=== PATIENT | male | born 1950 | race Hispanic/Latino ===

== ENCOUNTER 2017-10-04 14:13 | Emergency (ER) | payer OTHER ==
[2017-10-04 15:09] LABS: BASOPHILS % (AUTO) 0.3 % (0.0-5.0); HEMATOCRIT 27.7 % (42-54); LYMPHOCYTES % (AUTO) 15.4 % (21.0-51.0); MEAN CORPUSCULAR HEMOGLOBIN 28.2 pg (27.0-33.0); MEAN CORPUSCULAR HGB CONC 33.6 g/dL (32.0-36.0); MEAN CORPUSCULAR VOLUME 83.8 fL (79-99); MONOCYTES % (AUTO) 7.8 % (3.0-13.0); NEUTROPHILS % (AUTO) 75.5 % (40.0-77.0); PLATELET COUNT (AUTO) 86 K/uL (130-400); RED CELL DISTRIBUTION WIDTH 14.6 % (11.0-15.5); WHITE BLOOD COUNT (AUTO) 5.3 K/uL (4.8-10.8)
[2017-10-04 15:23] LABS: INR 1.17 (0.85-1.15); POTASSIUM 3.3 mmol/L (3.5-5.1); PROTHROMBIN TIME 12.2 SEC (9.6-11.6)
[2017-10-04 15:28] LABS: ALBUMIN 2.8 g/dL (3.5-5.0); BILIRUBIN,TOTAL 1.2 mg/dL (0.2-1.0); TOTAL PROTEIN, SERUM 6.2 g/dL (6.0-8.3)
== END 2017-10-04 18:06 | disposition home or self-care (01) ==
LOC: EDH 14:13
DX: K92.0 Hematemesis (principal); R10.13 Epigastric pain
CPT/HCPCS: 36415; 80053; 82270; 85025; 85610; 85730; 86850; 86900; 86901; 93005; 96374

== ENCOUNTER → 2018-11-01 | Outpatient (CLI) | payer OTHER ==
[~2018-11-01] MED LIST: FE F1CAP33 PO; IOHEXOL 350 MG/ML 100ML INFUS..BTL IV ONE; NADO20TA12 PO; PANT40TA25 PO
== END | disposition home or self-care (01) ==
LOC: RAH 07:48
PROVIDERS: ATTEND Family Medicine
DX: D73.2 Chronic congestive splenomegaly (principal); R16.2 Hepatomegaly with splenomegaly, not elsewhere classified; K82.8 Other specified diseases of gallbladder; K44.9 Diaphragmatic hernia without obstruction or gangrene; R18.8 Other ascites; I70.0 Atherosclerosis of aorta; M47.819 Spondylosis without myelopathy or radiculopathy, site unspecified
CPT/HCPCS: 74178; Q9967

== ENCOUNTER 2018-11-05 07:24 | Day surgery (SDC) | payer OTHER ==
[~2018-11-05 07:24] MED LIST changes: -IOHEXOL 350 MG/ML 100ML INFUS..BTL IV ONE
[2018-11-05 08:28] LABS: BASOPHILS % (AUTO) 0.8 % (0.0-5.0); EOSINOPHILS % (AUTO) 2.4 % (0.0-8.0); HEMATOCRIT 34.6 % (42-54); LYMPHOCYTES % (AUTO) 23.8 % (21.0-51.0); MEAN CORPUSCULAR HEMOGLOBIN 30.1 pg (27.0-33.0); MEAN CORPUSCULAR HGB CONC 32.6 g/dL (32.0-36.0); MEAN CORPUSCULAR VOLUME 92.3 fL (79-99); MONOCYTES % (AUTO) 15.3 % (3.0-13.0); NEUTROPHILS % (AUTO) 57.7 % (40.0-77.0); PLATELET COUNT (AUTO) 61 K/uL (130-400); RED BLOOD CELL COUNT(AUTO) 3.75 MIL/uL (4.50-6.20); RED CELL DISTRIBUTION WIDTH 16.4 % (11.0-15.5); WHITE BLOOD COUNT (AUTO) 2.4 K/uL (4.8-10.8)
[2018-11-05] MEDS ORDERED: SODIUM CHLORIDE 0.9% 1000ML 1,000 ML IV ONE (08:39)
[2018-11-05 08:40] LABS: INR 1.15 (0.85-1.15); PARTIAL THROMBOPLASTIN TIME 29.9 SEC (26.3-35.5)
[2018-11-05 09:19] LABS: MAN.DIFF COMMENT-IMPRESSION MANUAL DIFFERENTIAL
[2018-11-05 09:24] LABS: PLATELET MORPHOLOGY COMMENT DECREASED
[2018-11-05 09:29] LABS: EOSINOPHILS % (MANUAL) 2 % (1-6); LYMPHOCYTES % (MANUAL) 33 % (22-44); MONOCYTES % (MANUAL) 7 % (2-9); SEGMENTED NEUTROPHILS % 58 % (40-70)
--- NOTE | 2018-11-05 11:30 | NUR ---
PROCEDURE PATIENT SCHEDULED FOR CT GD LIVE MASS BIOPSY. IMAGES REVIEWED BY DR Juvencio GALLARDO AND RECOMMENDED U/S GUIDANCE FOR SAFER APPROACH. U/S IMAGES TAKEN AND REVIEWED BY DR Juvencio GALLARDO. NO SAFE WINDOW TO PERFORM LIVER MASS BIOPSY WITHOUT PUNCTURING THE LUNG. PROCEDURE CANCELLED. PROCEDURE OUTCOME EXPLAINED TO PATIENT AND . VERBALIZED UNDERSTANDING AND TRANSPORTED TO DAY PATIENT, REPORT GIVEN TO Juvencio CALLOWAY RN
--- NOTE | 2018-11-05 11:43 | NUR ---
PROCEDURE NOT ABLE TO BE COMPLETED SAFELY, PROCEDURE ABORTED.PT WILL BE DISCHARGED TO FOLLOW UP WITH DR. PETER.
== END 2018-11-05 11:52 | disposition home or self-care (01) ==
LOC: DAH 07:24 → EDSTATUS 08:00 → DAH 11:52
PROVIDERS: ATTEND Family Medicine
DX: R16.0 Hepatomegaly, not elsewhere classified (principal); K74.60 Unspecified cirrhosis of liver; E66.3 Overweight; Z98.890 Other specified postprocedural states; Z79.899 Other long term (current) drug therapy; Z87.891 Personal history of nicotine dependence; Z68.25 Body mass index [BMI] 25.0-25.9, adult
CPT/HCPCS: 36415; 76705; 85025; 85610; 85730; A4606; J7030

== ENCOUNTER 2019-02-21 07:02 | Inpatient (IN) | payer OTHER ==
[~2019-02-21] VITALS: Ht 162.6 cm; Wt 75.3 kg
[2019-02-21] MEDS ORDERED: SODIUM CHLORIDE 0.9% 100 ML IV ONE ×3 (07:52→16:53)
[2019-02-21 08:11] LABS: INR 1.39 (0.85-1.15); PARTIAL THROMBOPLASTIN TIME 30.1 SEC (26.3-35.5); PROTHROMBIN TIME 14.4 SEC (9.6-11.6)
[2019-02-21 08:22] LABS: BILIRUBIN,TOTAL 2.6 mg/dL (0.2-1.0); CREATININE 0.9 mg/dL (0.5-1.5); POTASSIUM 3.5 mmol/L (3.5-5.1)
[2019-02-21 08:23] LABS: ALBUMIN 2.2 g/dL (3.5-5.0); TOTAL PROTEIN, SERUM 5.4 g/dL (6.0-8.3)
[2019-02-21 08:30] LABS: BASOPHILS % (AUTO) 1.4 % (0.0-5.0); EOSINOPHILS % (AUTO) 1.8 % (0.0-8.0); HEMATOCRIT 29.2 % (42-54); LYMPHOCYTES % (AUTO) 3.3 % (21.0-51.0); MEAN CORPUSCULAR HEMOGLOBIN 31.3 pg (27.0-33.0); MEAN CORPUSCULAR HGB CONC 34.8 g/dL (32.0-36.0); MEAN CORPUSCULAR VOLUME 90.1 fL (79-99); MONOCYTES % (AUTO) 9.4 % (3.0-13.0); NEUTROPHILS % (AUTO) 84.1 % (40.0-77.0); PLATELET COUNT (AUTO) 142 K/uL (130-400); RED BLOOD CELL COUNT(AUTO) 3.24 MIL/uL (4.50-6.20); RED CELL DISTRIBUTION WIDTH 16.5 % (11.0-15.5); WHITE BLOOD COUNT (AUTO) 11.1 K/uL (4.8-10.8)
[2019-02-21] MEDS ORDERED: SODIUM CHLORIDE 0.9% 1000ML 1,000 ML IV ONE ×2 (08:39→09:43)
[2019-02-21] MEDS ORDERED: ONDANSETRON HCL 4 MG/2 ML VIAL ONE (09:01)
[2019-02-21] MEDS ORDERED: LEVOFLOXACIN 500 MG/D5W 100 ML 100 ML ONE (09:49)
[2019-02-21 09:58] LABS: CREATININE 0.7 mg/dL (0.5-1.5); POTASSIUM 3.3 mmol/L (3.5-5.1)
[2019-02-21] MEDS ORDERED: CEFTRIAXONE SODIUM 2 GM VIAL ONE (11:43)
[2019-02-21] MEDS ORDERED: PHYTONADIONE 10 MG/1 ML AMP ONE (11:44)
[2019-02-21 11:54] LABS: APPEARANCE,URINE Cloudy (CLEAR); BILIRUBIN,URINE Negative (NEGATIVE); COLOR,URINE Dark Yellow (YELLOW); GLUCOSE, URINE (UA) Negative (NEGATIVE); KETONES,URINE Negative (NEGATIVE); LEUKOCYTE ESTERASE ,URINE Trace (NEGATIVE); NITRATE,URINE Negative (NEGATIVE); OCCULT BLOOD,URINE Negative (NEGATIVE); PROTEIN,URINE POS 1+ mg/dL (NEGATIVE)
[2019-02-21] MEDS ORDERED: OCTREOTIDE ACETATE 500 MCG in SODIUM CHLORIDE 0.9% 97.5 ML IV PRN (12:00)
[2019-02-21] MEDS: AZITHROMYCIN 500MG+NS 250ML 250 ML IV SCH (12:00)
[2019-02-21] MEDS: CEFTRIAXONE SODIUM 2 GM VIAL IVP SCH (12:00)
[2019-02-21 12:35] LABS: BACTERIA,URINE Rare /HPF (None Seen); RBC,URINE 0-1 /HPF (0-1); SQUAMOUS EPITHELIAL CELL,UR Rare /HPF (0-2); WBC,URINE 0-1 /HPF (0-1)
[2019-02-21] MEDS ORDERED: MIDODRINE HCL 5 MG TABLET ONE (13:57)
[2019-02-21] MEDS ORDERED: AZITHROMYCIN 500MG+NS 250ML 250 ML IV ONE (17:02)
[2019-02-21] MEDS ORDERED: ONDANSETRON HCL 4 MG/2 ML VIAL IVP PRN (19:15)
[2019-02-21 20:28] VITALS: BP 76/50
[2019-02-21] MEDS: MIDODRINE HCL 5 MG TABLET PO SCH ×2 (21:00→21:58)
[2019-02-21] MEDS ORDERED: PANTOPRAZOLE 40 MG/VIAL IVP SCH (21:00)
[2019-02-21 21:04] VITALS: BP 86/52
[2019-02-21] MEDS: OCTREOTIDE ACETATE 500 MCG in SODIUM CHLORIDE 0.9% 97.5 ML IV SCH (22:01)
[2019-02-21] MEDS: PANTOPRAZOLE SODIUM 80 MG in SODIUM CHLORIDE 0.9% 100 ML IV SCH (22:01)
[2019-02-21 22:02] VITALS: BP 115/56
[2019-02-21] MEDS ORDERED: CIPR500S5 PO (22:15)
[2019-02-21] MEDS ORDERED: CYAN1TAB44 PO (22:15)
[2019-02-21] MEDS ORDERED: OMEP1PAC5 PO (22:15)
[2019-02-21] MEDS ORDERED: TRAM50TA4 PO (22:15)
[2019-02-21] MEDS ORDERED: FE F1CAP33 PO (22:15)
[2019-02-21] MEDS ORDERED: CARV6.25 PO (22:15)
--- NOTE | 2019-02-21 22:52 | NUR ---
PATIENT ADMITTED AT 2030 Patient was admitted from ED at 2030 with BP 77/49 but asymtomatic, Room air, and no pain at that time, AxOx4 and able to give medical history. Hospitalist INSTRUCTOR BUSINESS EDUCATION on-call was contacted for low blood pressure, and stated that if low BP was persistent, then transfer to ICU and start Levofed. Since then, pressures rising and patient continues to be asymtomatic at this time. Will continue to monitor. Patient was hypokalemic and no coverage in ED. Protocol started on floor.
[2019-02-21] MEDS ORDERED: POTASSIUM CHLORIDE 20 MEQ ERTAB PO PRN (23:00)
[2019-02-21] MEDS ORDERED: POTASSIUM CHLORIDE 20MEQ/100ML 100 ML IV PRN (23:00)
[2019-02-21] MEDS ORDERED: LIDOCAINE HCL-MPF 1% 2ML VIAL IV PRN (23:00)
[2019-02-21] MEDS: POTASSIUM CHLORIDE 10% ELIXIR 20 MEQ/15 ML UDCUP PO PRN (23:22)
[2019-02-21 23:25] VITALS: BP 98/55
[2019-02-22] VITALS (24 sets, daily range): BP systolic 76–99; BP diastolic 38–92
[2019-02-22] MEDS: POTASSIUM CHLORIDE 10% ELIXIR 20 MEQ/15 ML UDCUP PO PRN (01:12)
[2019-02-22 04:57] LABS: BASOPHILS % (AUTO) 0.2 % (0.0-5.0); EOSINOPHILS % (AUTO) 2.2 % (0.0-8.0); LYMPHOCYTES % (AUTO) 5.9 % (21.0-51.0); MEAN CORPUSCULAR HEMOGLOBIN 32.1 pg (27.0-33.0); MEAN CORPUSCULAR HGB CONC 35.5 g/dL (32.0-36.0); MEAN CORPUSCULAR VOLUME 90.4 fL (79-99); MONOCYTES % (AUTO) 18.7 % (3.0-13.0); PLATELET COUNT (AUTO) 78 K/uL (130-400); RED BLOOD CELL COUNT(AUTO) 2.15 MIL/uL (4.50-6.20); RED CELL DISTRIBUTION WIDTH 16.6 % (11.0-15.5); WHITE BLOOD COUNT (AUTO) 3.7 K/uL (4.8-10.8)
[2019-02-22 05:01] LABS: CREATININE 0.8 mg/dL (0.5-1.5); POTASSIUM 4.7 mmol/L (3.5-5.1)
[2019-02-22 05:04] LABS: HEMATOCRIT 19.4 % (42-54)
--- NOTE | 2019-02-22 05:15 | NUR ---
Blood transfusion Hemoglobin dropped to 6.9 from 10.1. Wilder TAP AND DIE MAKER TECHNICIAN notified and 1 unit PRBC given and GI consult placed.
[2019-02-22] MEDS: MIDODRINE HCL 5 MG TABLET PO SCH ×3 (07:50→20:18)
--- NOTE | 2019-02-22 07:58 | NUR ---
Eder MORALEZ MULTIPLEX OPERATOR, IN ROOM WITH PT. FOR CONSULT.
--- NOTE | 2019-02-22 08:00 | NUR ---
PRBC TRANSFUSION COMPLETED. PT. DENIES ANY C/O AT THIS TIME. CALL LIGHT WITHIN REACH.
[2019-02-22] MEDS: OCTREOTIDE ACETATE 500 MCG in SODIUM CHLORIDE 0.9% 97.5 ML IV SCH ×2 (08:08→22:17)
--- NOTE | 2019-02-22 08:35 | NUR ---
SECOND UNIT PRBC STARTED AFTER S/S OF POTENTIAL ADVERSE EFFECTS EXPLAINED, PT. VERBALIZED UNDERSTANDING. CALL LIGHT WITHIN REACH.
--- NOTE | 2019-02-22 08:45 | NUR ---
PRBC TRANSFUSION IN PROGRESS. PT. DENIES ANY C/O AT THIS TIME. CALL LIGHT WITHIN REACH.
[2019-02-22] MEDS ORDERED: CARV6.25 PO (08:49)
[2019-02-22] MEDS ORDERED: CIPR-278 PO (08:49)
[2019-02-22] MEDS ORDERED: METOCLOPRAMIDE 10 MG/2 ML VIAL IVP SCH (09:57)
--- NOTE | 2019-02-22 11:00 | NUR ---
2ND UNIT PRBC TRANSFUSION COMPLETED. PT. DENIES ANY C/O AT THIS TIME. CALL LIGHT WITHIN REACH.
--- NOTE | 2019-02-22 11:05 | NUR ---
TO GI LAB VIA BED ACCOMPANIED BY Anjelica SANDHU, AND Lavon LAURENT RN.
[2019-02-22] MEDS ORDERED: PROPOFOL 10 MG/ML 20ML VIAL IV ONE ×2 (11:14→11:18)
[2019-02-22] MEDS ORDERED: PHENYLEPHRINE HCL 10 MG/ML 1ML VIAL IV ONE (11:18)
[2019-02-22] MEDS ORDERED: SODIUM CHLORIDE 0.9% 1000ML 1,000 ML IV ONE (11:55)
--- NOTE | 2019-02-22 12:15 | NUR ---
RETURNED TO ROOM VIA BED ACCOMPANIED BY Sherry RENAE RN. PT. DROWSY BUT AROUSABLE. DENIES ANY C/O SOB, DENIES ANY CURRENT PAIN. INFORMED OF CONTINUED NPO STATUS, VERBALIZED UNDERSTANDING. BED LOW, SIDE RAILS UP X3. CALL LIGHT WITHIN REACH. SPOUSE AT BEDSIDE.
[2019-02-22] MEDS: CEFTRIAXONE SODIUM 2 GM VIAL IVP SCH (13:15)
[2019-02-22] MEDS: AZITHROMYCIN 500MG+NS 250ML 250 ML IV SCH (13:15)
--- NOTE | 2019-02-22 13:18 | NUR ---
TO CT SCAN VIA BED.
[2019-02-22 14:17] LABS: HEMATOCRIT 26.5 % (42-54)
--- NOTE | 2019-02-22 14:50 | NUR ---
RD Notification Pt admitted for Abdominal Pain, GI hemorrhage, pending EGD results. Rec to continue POC, pending Gastroenterology recommendations. Pt Hx of Liver cirrhosis, Esophageal varices, s/p banding. Also pending Repeat CXR to r/o TB as per EMR. Pt LBM 02/21. Pt monitored labs: H/H 6.9/19.4, BG 118, Ca 7.3, Alb 2.2. RD to continue to monitor. Please notify RD as additional nutrition concerns arise. Thank you. Addendum: 02/22/19 at [address] Amended: Links added.
--- NOTE | 2019-02-22 14:51 | NUR ---
1344 had pt sign and faxed IM Letter to [phone]
--- NOTE | 2019-02-22 15:20 | NUR ---
DC Plan Met with patient to discuss dcp. Patient did not verbalize any dc needs. States feels safe returning home upon discharge. Addendum: 02/22/19 at 1732 by HECTOR ZHOU Amended: Links added.
--- NOTE | 2019-02-22 17:38 | NUR ---
DR. Edgardo GRAYSON IN ROOM SPEAKING WITH PT.
[2019-02-22] MEDS: PANTOPRAZOLE SODIUM 80 MG in SODIUM CHLORIDE 0.9% 100 ML IV SCH (17:47)
[2019-02-22 21:14] LABS: HEMATOCRIT 27.2 % (42-54)
[2019-02-23 03:50] VITALS: BP 100/60
[2019-02-23 04:00] LABS: CREATININE 0.8 mg/dL (0.5-1.5); POTASSIUM 4.2 mmol/L (3.5-5.1)
[2019-02-23] MEDS: PANTOPRAZOLE SODIUM 80 MG in SODIUM CHLORIDE 0.9% 100 ML IV SCH (04:28)
[2019-02-23 07:42] VITALS: BP 103/61
[2019-02-23] MEDS: MIDODRINE HCL 5 MG TABLET PO SCH ×2 (08:55→13:27)
[2019-02-23] MEDS ORDERED: CEFD300C3 PO (10:41)
[2019-02-23] MEDS ORDERED: PANT40TA PO (10:42)
[2019-02-23 11:37] VITALS: BP 100/64
[2019-02-23] MEDS: AZITHROMYCIN 500MG+NS 250ML 250 ML IV SCH (12:27)
[2019-02-23] MEDS: CEFTRIAXONE SODIUM 2 GM VIAL IVP SCH (12:27)
[2019-02-23 14:05] LABS: HEMATOCRIT 27.3 % (42-54)
[2019-02-23 15:52] VITALS: BP 105/60
== END 2019-02-23 19:20 | disposition home or self-care (01) | DRG 432 ==
LOC: EDH 07:02 → OBSVTOIN 08:57 → EDHIP 08:57 → 2AH 20:00
PROVIDERS: ADMIT Internal Medicine; ATTEND Internal Medicine
PROC: 06L38CZ Occlusion of Esophageal Vein with Extraluminal Device, Via Natural or Artificial Opening Endoscopic (ICD-10-PCS; principal; 2019-02-22)
PROC: 30233N1 Transfusion of Nonautologous Red Blood Cells into Peripheral Vein, Percutaneous Approach (ICD-10-PCS; 2019-02-22)
DX: K74.60 Unspecified cirrhosis of liver (principal); I85.01 Esophageal varices with bleeding; J18.9 Pneumonia, unspecified organism; E43 Unspecified severe protein-calorie malnutrition; D62 Acute posthemorrhagic anemia; D68.4 Acquired coagulation factor deficiency; J90 Pleural effusion, not elsewhere classified; K76.6 Portal hypertension; D69.6 Thrombocytopenia, unspecified; J45.909 Unspecified asthma, uncomplicated; L53.9 Erythematous condition, unspecified; R16.1 Splenomegaly, not elsewhere classified; I95.9 Hypotension, unspecified; K31.89 Other diseases of stomach and duodenum; Z68.28 Body mass index [BMI] 28.0-28.9, adult; Z92.3 Personal history of irradiation; Z82.5 Family history of asthma and other chronic lower respiratory diseases; Z83.3 Family history of diabetes mellitus
CPT/HCPCS: 36415; 36430; 43244; 71045; 71250; 80048; 80053; 81001; 82105; 82270; 82550; 83605; 84145; 84484; 85014; 85018; 85025; 85610; 85730; 86850; 86900; 86901; 86922; 87040; 87804; 93005; 99291; C9113; G0378; J0456; J0696; J1956; J2354; J2370; J2405; J2704; J2765; J3430; J7030; P9016

== ENCOUNTER 2019-03-31 05:58 | Day surgery (SDC) | payer OTHER ==
[~2019-03-31] VITALS: Ht 177.8 cm; Wt 70.3 kg
[~2019-03-31 05:58] MED LIST changes: +CARV6.25 PO; +CYAN1TAB44 PO; +LACT10SO9 PO; -NADO20TA12 PO; +PANT40TA PO; -PANT40TA25 PO; +SPIR25TA6 PO
[2019-03-31] MEDS ORDERED: SODIUM CHLORIDE 0.9% 1000ML 1,000 ML IV ONE (06:27)
[2019-03-31 06:31] VITALS: BP 107/69
[2019-03-31] MEDS ORDERED: LIDOCAINE HCL 1% 20 ML VIAL ONE (07:28)
[2019-03-31] MEDS ORDERED: PROPOFOL 10 MG/ML 20ML VIAL IV ONE (07:28)
[2019-03-31] MEDS ORDERED: EPHEDRINE SULFATE 50 MG/ML AMPULE ONE (07:29)
[2019-03-31 07:40] VITALS: BP 99/59
[2019-03-31 07:45] VITALS: BP 96/59
[2019-03-31 07:50] VITALS: BP 96/55
[2019-03-31 07:55] VITALS: BP 91/58
[2019-03-31 08:10] VITALS: BP 100/58
== END 2019-03-31 08:13 | disposition home or self-care (01) ==
LOC: DAH 05:58 → ENDO 05:58
PROVIDERS: ATTEND Internal Medicine
DX: I85.11 Secondary esophageal varices with bleeding (principal); K31.89 Other diseases of stomach and duodenum; C22.9 Malignant neoplasm of liver, not specified as primary or secondary; B96.81 Helicobacter pylori [H. pylori] as the cause of diseases classified elsewhere; K57.30 Diverticulosis of large intestine without perforation or abscess without bleeding; I25.10 Atherosclerotic heart disease of native coronary artery without angina pectoris; K21.9 Gastro-esophageal reflux disease without esophagitis; K70.30 Alcoholic cirrhosis of liver without ascites; Z86.010 Personal history of colon polyps; Z79.899 Other long term (current) drug therapy
CPT/HCPCS: 43244; A4215; A4221; A4222; A4223; A4606; A4620; A4663; J2704; J3490; J7030

== ENCOUNTER 2019-05-20 07:40 | Day surgery (SDC) | payer OTHER ==
[~2019-05-20] VITALS: Ht 177.8 cm; Wt 69.9 kg
[~2019-05-20 07:40] MED LIST changes: +SODIUM CHLORIDE 0.9% 1000ML 1,000 ML IV ONE
[2019-05-20 09:24] VITALS: BP 97/64
[2019-05-20 10:28] VITALS: BP 77/50
[2019-05-20 10:33] VITALS: BP 88/55
[2019-05-20 10:38] VITALS: BP 89/56
[2019-05-20 10:43] VITALS: BP 96/51
--- NOTE | 2019-05-20 11:03 | NUR ---
PT LEFT VIA WHEELCHAIR IN PVT CAR WITH FAMILY MEMBER. D/C INSTRUCTIONS GIVEN TO FAMILY MEMBER DENZEL, ALONG WITH F/U APPT. V/S STABLE NO COMPLICATIONS UPON D/C.
== END 2019-05-20 11:03 | disposition home or self-care (01) ==
LOC: ENDO 07:40 → DAH 07:40 → ENDO 11:03
PROVIDERS: ATTEND Internal Medicine
DX: I85.10 Secondary esophageal varices without bleeding (principal); K70.31 Alcoholic cirrhosis of liver with ascites; K31.89 Other diseases of stomach and duodenum; C22.9 Malignant neoplasm of liver, not specified as primary or secondary; Z79.899 Other long term (current) drug therapy; Z86.010 Personal history of colon polyps; Z83.3 Family history of diabetes mellitus; Z82.5 Family history of asthma and other chronic lower respiratory diseases
CPT/HCPCS: 43235; A4215; A4221; A4222; A4223; A4606; A4620; A4663; J7030

== ENCOUNTER → 2019-06-08 | Outpatient (CLI) | payer OTHER ==
[~2019-06-08] MED LIST changes: +GADODIAMIDE 10 MMOL/20 ML VIAL IV ONE; -SODIUM CHLORIDE 0.9% 1000ML 1,000 ML IV ONE
== END | disposition home or self-care (01) ==
LOC: RAH 10:43
PROVIDERS: ATTEND Family Medicine
DX: C22.9 Malignant neoplasm of liver, not specified as primary or secondary (principal); K74.60 Unspecified cirrhosis of liver; R16.0 Hepatomegaly, not elsewhere classified; R16.1 Splenomegaly, not elsewhere classified
CPT/HCPCS: 74183; A9579

== ENCOUNTER → 2019-06-24 | Outpatient (CLI) | payer OTHER ==
[~2019-06-24] VITALS: Ht 177.8 cm; Wt 73.9 kg
[~2019-06-24] MED LIST changes: +ALBUMIN (HUMAN) 25% 200 ML IV SCH; -GADODIAMIDE 10 MMOL/20 ML VIAL IV ONE
--- NOTE | 2019-06-24 10:40 | NUR ---
U/S GD PARACENTESIS PROCEDURE PERFORMED BY DR. SOW. PUNCTURE SITE LEFT LOWER QUADRANT OF ABDOMEN AND PATIENT TOLERATED PROCEDURE WELL. TOTAL REMOVED 5.0 LITERS OF CLEAR YELLOW FLUID. END OF PROCEDURE AT 1120. CATHETER REMOVED AND DRESSING APPLIED. NO BLEEDING NOTED. ALBUMIN 25% 50 GRAMS GIVEN [place]URING PROCEDURE [place] [facility] [place] RIGHT FOREARM PIV DC'D, BANDAID APPLIED, DRESSING DRY AND INTACT. DISCHARGE INSTRUCTIONS GIVEN TO PATIENT. PATIENT VERBALIZED UNDERSTANDING. PT DISCHARGED VIA W/C, STABLE, AAO X3 WITH NO C/O PAIN. SPECIMEN SENT TO LAB.
[2019-06-24 16:13] LABS: APPEARANCE BODY FLUID SLIGHTLY CLOUDY (CLEAR); BODY FLUID WBC 115 /cu. mm.; COLOR,BODY FLUID DARK YELLOW (LT YELLOW); SPECIMENTYPE,BODY FLUID ASCITES; TOTAL VOLUME,BODY FLUID 5000 mL
[2019-06-24 16:14] LABS: BODY FLUID RBC 1805 /cu. mm.
[2019-06-24 17:58] LABS: BF LYMPHOCYTE 86 %; BF MONOCYTE 7 %
== END ==
LOC: RAH 08:58
PROVIDERS: ATTEND Family Medicine
DX: R18.8 Other ascites (principal)
CPT/HCPCS: 49083; 87071; 87205; 89051; A4215; P9046; 96365

== ENCOUNTER → 2019-08-16 | Outpatient (CLI) | payer OTHER ==
[~2019-08-16] MED LIST changes: +ALBUMIN (HUMAN) 25% 200 ML IV ONE; -ALBUMIN (HUMAN) 25% 200 ML IV SCH; +CIPR500S5 PO; +FURO40TA5 PO; +MIDO5TAB4 PO; +MULT-1203 PO; +PANT40TA55 PO; +RIFA550T PO; +SPIR50TA5 PO
[2019-08-16 08:52] LABS: INR 1.25 (0.85-1.15); PROTHROMBIN TIME 13.4 SEC (9.6-11.6)
--- NOTE | 2019-08-16 08:55 | NUR ---
U/S GD PARACENTESIS PROCEDURE PERFORMED BY DR. GALLARDO. PUNCTURE SITE LEFT LOWER QUADRANT OF ABDOMEN AND PATIENT TOLERATED PROCEDURE WELL. TOTAL REMOVED 4.7 LITERS OF CLOUDY BROWN COLORED FLUID. END OF PROCEDURE AT 0915. CATHETER REMOVED AND DRESSING APPLIED. NO BLEEDING NOTED. ALBUMIN 25% 50 GRAMS GIVEN DURING PROCEDURE PER [facility] [place] ALBUMIN PROTOCOL. RIGHT FOREARM PIV DC'D, BANDAID APPLIED, DRESSING DRY AND INTACT. DISCHARGE INSTRUCTIONS GIVEN TO PATIENT. PATIENT VERBALIZED UNDERSTANDING. PT DISCHARGED VIA W/C, STABLE, AAO X3 WITH NO C/O PAIN. SPECIMEN SENT TO LAB.
[2019-08-16 15:25] LABS: APPEARANCE BODY FLUID SLIGHTLY CLOUDY (CLEAR); COLOR,BODY FLUID YELLOW (LT YELLOW); SPECIMENTYPE,BODY FLUID ASCITES
[2019-08-16 15:26] LABS: BODY FLUID WBC 430 /cu. mm.; TOTAL VOLUME,BODY FLUID 4700 mL
[2019-08-16 15:27] LABS: BODY FLUID RBC 1900 /cu. mm.
[2019-08-16 15:38] LABS: BF LYMPHOCYTE 21 %; BF MESOTHELIAL 1 %
== END ==
LOC: RAH 07:32
PROVIDERS: ATTEND Family Medicine
DX: K70.31 Alcoholic cirrhosis of liver with ascites (principal); K76.6 Portal hypertension; R16.1 Splenomegaly, not elsewhere classified; I85.10 Secondary esophageal varices without bleeding; Z86.2 Personal history of diseases of the blood and blood-forming organs and certain disorders involving the immune mechanism; C22.0 Liver cell carcinoma; Z98.890 Other specified postprocedural states
CPT/HCPCS: 36415; 49083; 85610; 85730; 87071; 87205; 89051; A4215; P9046; 96365

== ENCOUNTER → 2019-08-29 | Outpatient (CLI) | payer OTHER ==
[~2019-08-29] MED LIST changes: -CIPR500S5 PO; -FURO40TA5 PO; -MIDO5TAB4 PO; -MULT-1203 PO; -PANT40TA55 PO; -RIFA550T PO; -SPIR50TA5 PO
--- NOTE | 2019-08-29 10:29 | NUR ---
U/S GD PARACENTESIS PROCEDURE PERFORMED BY DR. Crow SOW. PUNCTURE SITE LEFT LOWER QUADRANT OF ABDOMEN AND PATIENT TOLERATED PROCEDURE WELL. TOTAL REMOVED 7 LITERS OF CLOUDY YELLOW COLORED FLUID. END OF PROCEDURE AT 0915. CATHETER REMOVED AND DRESSING APPLIED. NO BLEEDING NOTED. ALBUMIN 25% 50 GRAMS GIVEN [place]URING [place]EDURE [place] [facility] [place]. LEFT FOREARM PIV DC'D, BANDAID APPLIED, DRESSING DRY AND INTACT. DISCHARGE INSTRUCTIONS GIVEN TO PATIENT. PATIENT VERBALIZED UNDERSTANDING. PT DISCHARGED VIA W/C, STABLE, AAO X3 WITH NO C/O PAIN. SPECIMEN SENT TO LAB.
[2019-08-29 16:09] LABS: APPEARANCE BODY FLUID SLIGHTLY CLOUDY (CLEAR); COLOR,BODY FLUID YELLOW (LT YELLOW); SPECIMENTYPE,BODY FLUID ASCITES
[2019-08-29 16:10] LABS: BODY FLUID RBC 1000 /cu. mm.; BODY FLUID WBC 100 /cu. mm.; TOTAL VOLUME,BODY FLUID 7000 mL
[2019-08-29 16:15] LABS: BF LYMPHOCYTE 68 %; BF MESOTHELIAL 5 %
== END ==
LOC: RAH 07:30
PROVIDERS: ATTEND Family Medicine
DX: K70.31 Alcoholic cirrhosis of liver with ascites (principal); R16.1 Splenomegaly, not elsewhere classified; I85.00 Esophageal varices without bleeding; C22.0 Liver cell carcinoma; Z86.2 Personal history of diseases of the blood and blood-forming organs and certain disorders involving the immune mechanism; K76.6 Portal hypertension; Z86.010 Personal history of colon polyps
CPT/HCPCS: 49083; 87071; 87205; 89051; A4215; P9046; 96365

== ENCOUNTER → 2019-09-09 | Outpatient (CLI) | payer OTHER ==
[~2019-09-09] MED LIST changes: -ALBUMIN (HUMAN) 25% 200 ML IV ONE; +ALBUMIN (HUMAN) 25% 200 ML IV SCH; +FURO40TA5 PO; +MULT-1203 PO; +SPIR50TA5 PO
--- NOTE | 2019-09-09 10:00 | NUR ---
U/S GD PARACENTESIS PROCEDURE PERFORMED BY DR. Arielle HARRIS. PUNCTURE SITE right LOWER QUADRANT OF ABDOMEN AND PATIENT TOLERATED PROCEDURE WELL. TOTAL REMOVED 5.5 LITERS OF CLOUDY YELLOW COLORED FLUID. END OF PROCEDURE AT 0930. CATHETER REMOVED AND DRESSING APPLIED. NO BLEEDING NOTED. ALBUMIN 25% 25 GRAMS GIVEN DURING PROCEDURE PER [facility] [place] ALBUMIN PROTOCOL. RIGHT FOREARM PIV DC'D, BANDAID APPLIED, DRESSING DRY AND INTACT. DISCHARGE INSTRUCTIONS GIVEN TO PATIENT. PATIENT VERBALIZED UNDERSTANDING. PT DISCHARGED VIA W/C, STABLE, AAO X3 WITH NO C/O PAIN. SPECIMEN SENT TO LAB.
[2019-09-09 13:24] LABS: APPEARANCE BODY FLUID CLEAR (CLEAR); COLOR,BODY FLUID YELLOW (LT YELLOW); SPECIMENTYPE,BODY FLUID ASCITES
[2019-09-09 13:25] LABS: BODY FLUID RBC 1400 /cu. mm.; BODY FLUID WBC 95 /cu. mm.
[2019-09-09 13:26] LABS: TOTAL VOLUME,BODY FLUID 5500 mL
[2019-09-09 13:31] LABS: BF LYMPHOCYTE 27 %; BF MESOTHELIAL 13 %; BF MONOCYTE 46 %
== END | disposition home or self-care (01) ==
LOC: RAH 08:22
PROVIDERS: ATTEND Family Medicine
DX: K70.31 Alcoholic cirrhosis of liver with ascites (principal); Z79.899 Other long term (current) drug therapy; Z83.3 Family history of diabetes mellitus; Z82.5 Family history of asthma and other chronic lower respiratory diseases; Z98.890 Other specified postprocedural states; Z87.891 Personal history of nicotine dependence
CPT/HCPCS: 49083; 87071; 87205; 89051; A4215; P9046; 76942; 96365

== ENCOUNTER 2019-09-15 07:29 | Day surgery (SDC) | payer OTHER ==
[~2019-09-15] VITALS: Ht 177.8 cm; Wt 63.5 kg
[~2019-09-15 07:29] MED LIST changes: -ALBUMIN (HUMAN) 25% 200 ML IV SCH; -CYAN1TAB44 PO; -FE F1CAP33 PO; -PANT40TA PO; +SODIUM CHLORIDE 0.9% 1000ML 1,000 ML IV ONE; -SPIR25TA6 PO
[2019-09-15 08:41] VITALS: BP 93/64
[2019-09-15] MEDS ORDERED: PROPOFOL 10 MG/ML 20ML VIAL IV ONE (10:06)
[2019-09-15 10:20] VITALS: BP 86/54
[2019-09-15 10:25] VITALS: BP 85/47
[2019-09-15 10:30] VITALS: BP 89/59
[2019-09-15 10:38] VITALS: BP 89/60
[2019-09-15 10:45] VITALS: BP 90/66
== END 2019-09-15 10:50 | disposition home or self-care (01) ==
LOC: ENDO 07:29 → DAH 07:29 → ENDO 10:50
PROVIDERS: ATTEND Internal Medicine Gastroenterology
DX: I85.00 Esophageal varices without bleeding (principal); K29.50 Unspecified chronic gastritis without bleeding; C22.9 Malignant neoplasm of liver, not specified as primary or secondary; K57.30 Diverticulosis of large intestine without perforation or abscess without bleeding; K29.80 Duodenitis without bleeding; D64.9 Anemia, unspecified; K70.31 Alcoholic cirrhosis of liver with ascites; K76.6 Portal hypertension; Z86.010 Personal history of colon polyps
CPT/HCPCS: 36415; 43239; 88305; 88342; 93005; A4215; A4221; A4222; A4223; A4606; A4620; A4663; J2704; J7030; U0003; 43200

== ENCOUNTER → 2019-09-16 | Outpatient (CLI) | payer OTHER ==
[~2019-09-16] MED LIST changes: +ALBUMIN (HUMAN) 25% 200 ML IV SCH; +CIPR500S5 PO; +MIDO5TAB4 PO; +PANT40TA55 PO; +RIFA550T PO; -SODIUM CHLORIDE 0.9% 1000ML 1,000 ML IV ONE
--- NOTE | 2019-09-16 08:45 | NUR ---
U/S GD PARACENTESIS PROCEDURE PERFORMED BY DR. HARRIS. PUNCTURE SITE RIGHT LOWER QUADRANT OF ABDOMEN AND PATIENT TOLERATED PROCEDURE WELL. TOTAL REMOVED 8 LITERS OF CLOUDY YELLOW FLUID. END OF PROCEDURE AT 0910. CATHETER REMOVED AND DRESSING APPLIED. NO BLEEDING NOTED. ALBUMIN 25% 50 GRAMS GIVEN DURING PROCEDURE PER [facility] [place] ALBUMIN PROTOCOL. PIV DC'D, BANDAID APPLIED, DRESSING DRY AND INTACT. DISCHARGE INSTRUCTIONS GIVEN TO PATIENT. PATIENT VERBALIZED UNDERSTANDING. PT DISCHARGED AMBULATORY, STABLE, AAO X3 WITH NO C/O PAIN. SPECIMEN SENT TO LAB. Addendum: 09/16/19 at 1257 by DHIRAJ SANCHEZ RN RN U/S GD PARACENTESIS PROCEDURE PERFORMED BY DR. HARRIS. PUNCTURE SITE RIGHT LOWER QUADRANT OF ABDOMEN AND PATIENT TOLERATED PROCEDURE WELL. TOTAL REMOVED 5.2 LITERS OF CLOUDY YELLOW FLUID. END OF PROCEDURE AT 0905. CATHETER REMOVED AND DRESSING APPLIED. NO BLEEDING NOTED. ALBUMIN 25% 50 GRAMS GIVEN DURING PROCEDURE PER [facility] [place] ALBUMIN PROTOCOL. PIV DC'D, BANDAID APPLIED, DRESSING DRY AND INTACT. DISCHARGE INSTUCTIONS GIVEN TO PATIENT. PATIENT VERBALIZED UNDERSTANDING. PT DISCHARGED VIA W/C, STABLE, AAO X3 WITH NO C/O PAIN. SPECIMEN SENT TO LAB.
[2019-09-16 14:22] LABS: APPEARANCE BODY FLUID SLIGHTLY CLOUDY (CLEAR); COLOR,BODY FLUID YELLOW (LT YELLOW); SPECIMENTYPE,BODY FLUID ASCITES; TOTAL VOLUME,BODY FLUID 5200 mL
[2019-09-16 14:26] LABS: BODY FLUID RBC 1025 /cu. mm.; BODY FLUID WBC 161 /cu. mm.
[2019-09-16 14:29] LABS: BF LYMPHOCYTE 32 %; BF MESOTHELIAL 3 %; BF MONOCYTE 48 %
== END ==
LOC: RAH 08:04
PROVIDERS: ATTEND Family Medicine
DX: R18.8 Other ascites (principal)
CPT/HCPCS: 49083; 87071; 87205; 89051; A4215; P9046; 96365

== ENCOUNTER → 2019-09-28 | Outpatient (CLI) | payer OTHER ==
[~2019-09-28] MED LIST changes: +ALBUMIN (HUMAN) 25% 200 ML IV PRN; -ALBUMIN (HUMAN) 25% 200 ML IV SCH; -CIPR500S5 PO; -MIDO5TAB4 PO; -PANT40TA55 PO; -RIFA550T PO
--- NOTE | 2019-09-28 11:15 | NUR ---
U/S GD PARACENTESIS PROCEDURE PERFORMED BY DR. HARRIS. PUNCTURE SITE RIGHT LOWER QUADRANT OF ABDOMEN AND PATIENT TOLERATED PROCEDURE WELL. TOTAL REMOVED 4.7 LITERS OF CLOUDY YELLOW FLUID. END OF PROCEDURE AT 1205. CATHETER REMOVED AND DRESSING APPLIED. NO BLEEDING NOTED. ALBUMIN 25% 25 GRAMS GIVEN DURING PROCEDURE [place] [facility] [place]. LEFT ANTECUBITAL PIV DC'D, BANDAID APPLIED, DRESSING DRY AND INTACT. DISCHARGE INSTRUCTIONS GIVEN TO PATIENT. PATIENT VERBALIZED UNDERSTANDING. PT DISCHARGED AMBULATORY, STABLE, AAO X3 WITH NO C/O PAIN. SPECIMEN SENT TO LAB.
[2019-09-28 12:11] LABS: INR 1.14 (0.85-1.15); PARTIAL THROMBOPLASTIN TIME 30.9 SEC (26.3-35.5); PROTHROMBIN TIME 12.2 SEC (9.6-11.6)
[2019-09-28 15:06] LABS: APPEARANCE BODY FLUID SLIGHTLY CLOUDY (CLEAR); BF LYMPHOCYTE 38 %; BF MESOTHELIAL 16 %; BF MONOCYTE 6 %; BODY FLUID WBC 83 /cu. mm.; COLOR,BODY FLUID DARK YELLOW (LT YELLOW); SPECIMENTYPE,BODY FLUID ASCITES; TOTAL VOLUME,BODY FLUID 4700 mL
[2019-09-28 15:07] LABS: BODY FLUID RBC 5140 /cu. mm.
== END ==
LOC: RAH 09:19
PROVIDERS: ATTEND Family Medicine
DX: K70.31 Alcoholic cirrhosis of liver with ascites (principal)
CPT/HCPCS: 36415; 49083; 85610; 85730; 87071; 87205; 89051; A4215; 96365

== ENCOUNTER → 2019-10-11 | Outpatient (CLI) | payer OTHER ==
[~2019-10-11] MED LIST changes: +ALBUMIN (HUMAN) 25% 100 ML IV PRN; -ALBUMIN (HUMAN) 25% 200 ML IV PRN; +ALBUMIN (HUMAN) 25% 200 ML IV SCH
--- NOTE | 2019-10-11 12:24 | NUR ---
PROCEDURE PERFORMED BY DR. HARRIS. PUNCTURE SITE LEFT LOWER QUADRANT OF ABDOMEN AND PATIENT TOLERATED PROCEDURE WELL. TOTAL REMOVED 1950CC OF CLOUDY YELLOW ASCITES FLUID. END OF PROCEDURE AT 1105. CATHETER REMOVED AND DRESSING APPLIED. NO BLEEDING NOTED. PATIENT DISCHARGED HOME @ 1125. PT STABLE, AAO X3 WITH NO C/O PAIN.
== END | disposition home or self-care (01) ==
LOC: RAH 09:56
PROVIDERS: ATTEND Family Medicine
DX: K70.31 Alcoholic cirrhosis of liver with ascites (principal)
CPT/HCPCS: 49083; A4215; P9046

== ENCOUNTER → 2019-10-26 | Outpatient (CLI) | payer OTHER ==
[~2019-10-26] MED LIST changes: -ALBUMIN (HUMAN) 25% 100 ML IV PRN; +ALBUMIN (HUMAN) 25% 100 ML IV SCH
--- NOTE | 2019-10-26 10:20 | NUR ---
U/S GD PARACENTESIS PROCEDURE PERFORMED BY DR. HARRIS. PUNCTURE SITE LEFT LOWER QUADRANT OF ABDOMEN AND PATIENT TOLERATED PROCEDURE WELL. TOTAL REMOVED 6.6 LITERS OF CLOUDY YELLOW FLUID. END OF PROCEDURE AT 1100. CATHETER REMOVED AND DRESSING APPLIED. NO BLEEDING NOTED. ALBUMIN 25% 50 GRAMS GIVEN DURING PROCEDURE [place] [facility] [place]. RIGHT FOREARM PIV DC'D, BANDAID APPLIED, DRESSING DRY AND INTACT. DISCHARGE INSTRUCTIONS GIVEN TO PATIENT. PATIENT VERBALIZED UNDERSTANDING. PT DISCHARGED VIA W/C, STABLE, AAO X3 WITH NO C/O PAIN. SPECIMEN SENT TO LAB.
[2019-10-26 12:46] LABS: APPEARANCE BODY FLUID TURBID (CLEAR); BODY FLUID RBC 5400 /cu. mm.; BODY FLUID WBC 45 /cu. mm.; COLOR,BODY FLUID DARK YELLOW (LT YELLOW); SPECIMENTYPE,BODY FLUID ASCITES; TOTAL VOLUME,BODY FLUID 6600 mL
[2019-10-26 13:25] LABS: BF LYMPHOCYTE 20 %; BF MESOTHELIAL 9 %; BF MONOCYTE 40 %
== END ==
LOC: RAH 07:43
PROVIDERS: ATTEND Family Medicine
DX: K70.31 Alcoholic cirrhosis of liver with ascites (principal)
CPT/HCPCS: 49083; 87071; 87205; 89051; A4215; P9046; 96365

== ENCOUNTER → 2019-11-04 | Outpatient (CLI) | payer OTHER ==
[~2019-11-04] MED LIST changes: -ALBUMIN (HUMAN) 25% 100 ML IV SCH
[2019-11-04 08:49] LABS: INR 1.12 (0.85-1.15); PARTIAL THROMBOPLASTIN TIME 29.3 SEC (26.3-35.5)
--- NOTE | 2019-11-04 11:00 | NUR ---
U/S GD PARACENTESIS PROCEDURE PERFORMED BY DR. HARRIS. PUNCTURE SITE RIGHT LOWER QUADRANT OF ABDOMEN AND PATIENT TOLERATED PROCEDURE WELL. TOTAL REMOVED 5.5 LITERS OF CLOUDY YELLOW FLUID. END OF PROCEDURE AT 1045. CATHETER REMOVED AND DRESSING APPLIED. NO BLEEDING NOTED. ALBUMIN 25% 25 GRAMS GIVEN DURING PROCEDURE PER [facility] [place] ALBUMIN PROTOCOL. PIV DC'D, BANDAID APPLIED, DRESSING DRY AND INTACT. DISCHARGE INSTRUCTIONS GIVEN TO PATIENT. PATIENT VERBALIZED UNDERSTANDING. PT DISCHARGED VIA W/C, STABLE, AAO X3 WITH NO C/O PAIN. SPECIMEN SENT TO LAB.
[2019-11-04 12:49] LABS: SPECIMENTYPE,BODY FLUID ASCITES
[2019-11-04 12:50] LABS: APPEARANCE BODY FLUID TURBID (CLEAR); BODY FLUID RBC 378 /cu. mm.; BODY FLUID WBC 37 /cu. mm.; COLOR,BODY FLUID ORANGE (LT YELLOW); TOTAL VOLUME,BODY FLUID 5500 mL
[2019-11-04 12:59] LABS: BF LYMPHOCYTE 27 %; BF MESOTHELIAL 22 %; BF MONOCYTE 46 %
== END ==
LOC: RAH 07:18
PROVIDERS: ATTEND Family Medicine
DX: R18.8 Other ascites (principal); Z79.01 Long term (current) use of anticoagulants
CPT/HCPCS: 36415; 49083; 85610; 85730; 87071; 87205; 89051; A4215; P9046; 96365

== ENCOUNTER → 2019-11-15 | Outpatient (CLI) | payer OTHER ==
[~2019-11-15] VITALS: Ht 180.3 cm; Wt 63.5 kg
[~2019-11-15] MED LIST changes: +ALBUMIN (HUMAN) 25% 200 ML IV PRN; -ALBUMIN (HUMAN) 25% 200 ML IV SCH
--- NOTE | 2019-11-15 10:20 | NUR ---
U/S GUIDED PARACENTESIS PROCEDURE PERFORMED BY DR. RUIZ PUNCTURE SITE _LLQ AND PATIENT TOLERATED PROCEDURE WELL. TOTAL REMOVED 6.8 LITERS OF CASTANEDA COLOR ASCITES FLUID END OF PROCEDURE AT 1002 .CATHETER REMOVED AND DRESSING APPLIED. NO BLEEDING NOTED. ALBUMIN 25% 50 GRAMS GIVEN IV PER ALBUMIN PROTOCOL. PIV DCD TO LEFT WRIST BANDAID APPLIED, NO BLEEDING NOTED. DISCHARGE INSTRUCTION GIVEN TO PATIENT AND VERBALIZED UNDERSTANDING. DISCHARGED VIA WC AAO X 3 WITH NO C/O PAIN.
[2019-11-15 12:56] LABS: APPEARANCE BODY FLUID CLOUDY (CLEAR); BODY FLUID WBC 48 /cu. mm.; COLOR,BODY FLUID ORANGE (LT YELLOW); SPECIMENTYPE,BODY FLUID ASCITES; TOTAL VOLUME,BODY FLUID 6800 mL
[2019-11-15 12:57] LABS: BODY FLUID RBC 5750 /cu. mm.
[2019-11-15 13:01] LABS: BF LYMPHOCYTE 41 %; BF MESOTHELIAL 5 %; BF MONOCYTE 17 %
== END | disposition home or self-care (01) ==
LOC: RAH 08:10
PROVIDERS: ATTEND Family Medicine
DX: R18.8 Other ascites (principal); K76.6 Portal hypertension; E87.1 Hypo-osmolality and hyponatremia; Z85.3 Personal history of malignant neoplasm of breast; Z79.899 Other long term (current) drug therapy; Z72.89 Other problems related to lifestyle; Z98.890 Other specified postprocedural states; Z79.01 Long term (current) use of anticoagulants
CPT/HCPCS: 49083; 87071; 87205; 89051; 96365; A4215

== ENCOUNTER → 2019-11-25 | Outpatient (CLI) | payer OTHER ==
[~2019-11-25] MED LIST changes: -ALBUMIN (HUMAN) 25% 200 ML IV PRN; +ALBUMIN (HUMAN) 25% 200 ML IV SCH
--- NOTE | 2019-11-25 10:15 | NUR ---
U/S GUIDED PARACENTESIS PROCEDURE PERFORMED BY DR. HARRIS. PUNCTURE SITE RIGHT LOWER QUADRANT AND PATIENT TOLERATED PROCEDURE WELL. TOTAL REMOVED 5.0 LITERS OF PINK TINGED FLUID. END OF PROCEDURE AT 1050.CATHETER REMOVED AND DRESSING APPLIED. NO BLEEDING NOTED. ALBUMIN 25% 50 GRAMS GIVEN IV PER ALBUMIN PROTOCOL.DISCHARGED INSTRUCTIONS GIVEN TO PATIENT. PATIENT VERBALIZED UNDERSTANDING. PT DISCHARGED VIA W/C @ 1115. PT STABLE, AAO X 3 WITH NO C/O PAIN.
[2019-11-25 15:49] LABS: APPEARANCE BODY FLUID CLOUDY (CLEAR); COLOR,BODY FLUID DARK YELLOW (LT YELLOW); SPECIMENTYPE,BODY FLUID ASCITES; TOTAL VOLUME,BODY FLUID 5000 mL
[2019-11-25 15:50] LABS: BODY FLUID RBC 5600 /cu. mm.; BODY FLUID WBC 48 /cu. mm.
[2019-11-25 16:08] LABS: BF LYMPHOCYTE 52 %; BF MESOTHELIAL 15 %; BF MONOCYTE 17 %
== END ==
LOC: RAH 08:56
PROVIDERS: ATTEND Family Medicine
DX: K70.31 Alcoholic cirrhosis of liver with ascites (principal); K76.6 Portal hypertension; E87.1 Hypo-osmolality and hyponatremia; Z98.890 Other specified postprocedural states; Z79.899 Other long term (current) drug therapy; Z83.3 Family history of diabetes mellitus; Z80.3 Family history of malignant neoplasm of breast; Z72.89 Other problems related to lifestyle; Z87.891 Personal history of nicotine dependence; Z86.2 Personal history of diseases of the blood and blood-forming organs and certain disorders involving the immune mechanism
CPT/HCPCS: 49083; 87071; 87205; 89051; A4215; P9046; 96365

== ENCOUNTER → 2019-12-07 | Outpatient (CLI) | payer OTHER ==
[~2019-12-07] MED LIST changes: +ALBUMIN (HUMAN) 25% 200 ML IV PRN; -ALBUMIN (HUMAN) 25% 200 ML IV SCH
[2019-12-07 09:12] LABS: INR 1.15 (0.85-1.15); PARTIAL THROMBOPLASTIN TIME 29.6 SEC (26.3-35.5); PROTHROMBIN TIME 12.4 SEC (9.6-11.6)
[2019-12-07 09:24] LABS: BASOPHILS % (AUTO) 0.4 % (0.0-5.0); EOSINOPHILS % (AUTO) 1.8 % (0.0-8.0); HEMATOCRIT 28.5 % (42-54); LYMPHOCYTES % (AUTO) 9.6 % (21.0-51.0); MEAN CORPUSCULAR HEMOGLOBIN 27.2 pg (27.0-33.0); MEAN CORPUSCULAR HGB CONC 31.9 g/dL (32.0-36.0); MEAN CORPUSCULAR VOLUME 85.3 fL (79-99); MONOCYTES % (AUTO) 18.8 % (3.0-13.0); NEUTROPHILS % (AUTO) 68.3 % (40.0-77.0); PLATELET COUNT (AUTO) 79 K/uL (130-400); RED BLOOD CELL COUNT(AUTO) 3.34 MIL/uL (4.50-6.20); RED CELL DISTRIBUTION WIDTH 15.4 % (11.0-15.5); WHITE BLOOD COUNT (AUTO) 2.8 K/uL (4.8-10.8)
--- NOTE | 2019-12-07 09:25 | NUR ---
U/S GUIDED PARACENTESIS PROCEDURE PERFORMED BY DR. ARROYO PUNCTURE SITE LEFT LOWER QUADRANT AND PATIENT TOLERATED PROCEDURE WELL. TOTAL REMOVED 7.5 LITERS OF PINK TINGED FLUID. END OF PROCEDURE AT 1020 CATHETER REMOVED AND DRESSING APPLIED. NO BLEEDING NOTED. ALBUMIN 25% 50 GRAMS GIVEN IV PER ALBUMIN PROTOCOL.DISCHARGED INSTRUCTIONS GIVEN TO PATIENT. PATIENT VERBALIZED UNDERSTANDING. PT DISCHARGED VIA W/C @ 1050 PT STABLE, AAO X 3 WITH NO C/O PAIN. PIV REMOVED TO LEFT AC , CATHETER INTACT, SITE ASYMPTOMATIC.
[2019-12-07 09:36] LABS: ALBUMIN 2.8 g/dL (3.5-5.0); BILIRUBIN,TOTAL 1.4 mg/dL (0.2-1.0); CREATININE 0.7 mg/dL (0.5-1.5); POTASSIUM 4.4 mmol/L (3.5-5.1); TOTAL PROTEIN, SERUM 6.2 g/dL (6.0-8.3)
[2019-12-07 10:00] LABS: EOSINOPHILS % (MANUAL) 2 % (1-6); LYMPHOCYTES % (MANUAL) 6 % (22-44); MAN.DIFF COMMENT-IMPRESSION MANUAL DIFFERENTIAL; MONOCYTES % (MANUAL) 6 % (2-9); PLATELET MORPHOLOGY COMMENT DECREASED; SEGMENTED NEUTROPHILS % 86 % (40-70)
[2019-12-07 12:32] LABS: SPECIMENTYPE,BODY FLUID ASCITES
[2019-12-07 12:33] LABS: APPEARANCE BODY FLUID CLOUDY (CLEAR); BODY FLUID RBC 5000 /cu. mm.; BODY FLUID WBC 63 /cu. mm.; COLOR,BODY FLUID ORANGE (LT YELLOW); TOTAL VOLUME,BODY FLUID 7500 mL
[2019-12-07 12:38] LABS: BF LYMPHOCYTE 30 %; BF MESOTHELIAL 24 %; BF MONOCYTE 42 %
== END ==
LOC: RAH 08:14
PROVIDERS: ATTEND Family Medicine
DX: R18.8 Other ascites (principal); K74.60 Unspecified cirrhosis of liver; K76.6 Portal hypertension; R16.1 Splenomegaly, not elsewhere classified; Z86.010 Personal history of colon polyps; Z98.84 Bariatric surgery status
CPT/HCPCS: 36415; 49083; 80053; 82140; 85025; 85610; 85730; 87071; 87205; 89051; A4215; 96365

== ENCOUNTER → 2019-12-16 | Outpatient (CLI) | payer OTHER ==
[~2019-12-16] MED LIST changes: -ALBUMIN (HUMAN) 25% 200 ML IV PRN; +ALBUMIN (HUMAN) 25% 200 ML IV SCH
--- NOTE | 2019-12-16 09:45 | NUR ---
U/S GUIDED PARACENTESIS PROCEDURE PERFORMED BY DR. ARROYO PUNCTURE SITE LEFT LOWER QUADRANT AND PATIENT TOLERATED PROCEDURE WELL. TOTAL REMOVED 7 LITERS OF PINK TINGED FLUID. END OF PROCEDURE AT 0915 CATHETER REMOVED AND DRESSING APPLIED. NO BLEEDING NOTED. ALBUMIN 25% 50 GRAMS GIVEN IV PER ALBUMIN PROTOCOL.DISCHARGED INSTRUCTIONS GIVEN TO PATIENT. PATIENT VERBALIZED UNDERSTANDING. PT DISCHARGED VIA W/C @ 0945 PT STABLE, AAO X 3 WITH NO C/O PAIN. PIV REMOVED TO LEFT AC , CATHETER INTACT, SITE ASYMPTOMATIC.
[2019-12-16 12:30] LABS: BF LYMPHOCYTE 14 %; BF MESOTHELIAL 25 %; BF MONOCYTE 52 %
[2019-12-16 12:32] LABS: APPEARANCE BODY FLUID CLOUDY (CLEAR); BODY FLUID WBC 39 /cu. mm.; COLOR,BODY FLUID ORANGE (LT YELLOW); SPECIMENTYPE,BODY FLUID ASCITES; TOTAL VOLUME,BODY FLUID 7000 mL
[2019-12-16 12:33] LABS: BODY FLUID RBC 3375 /cu. mm.
== END ==
LOC: RAH 08:07
PROVIDERS: ATTEND Family Medicine
DX: K70.31 Alcoholic cirrhosis of liver with ascites (principal); C22.0 Liver cell carcinoma; K76.6 Portal hypertension; Z86.010 Personal history of colon polyps; Z83.3 Family history of diabetes mellitus; Z80.3 Family history of malignant neoplasm of breast; Z98.890 Other specified postprocedural states; Z79.899 Other long term (current) drug therapy; Z72.89 Other problems related to lifestyle; Z87.891 Personal history of nicotine dependence; Z87.19 Personal history of other diseases of the digestive system
CPT/HCPCS: 49083; 87071; 87205; 89051; A4215; P9046; 96365

== ENCOUNTER → 2019-12-23 | Outpatient (CLI) | payer OTHER ==
[~2019-12-23] MED LIST changes: +ALBUMIN (HUMAN) 25% 200 ML IV PRN; -ALBUMIN (HUMAN) 25% 200 ML IV SCH
--- NOTE | 2019-12-23 09:43 | NUR ---
U/S GUIDED PARACENTESIS PROCEDURE PERFORMED BY DR. ARROYO PUNCTURE SITE LEFT LOWER QUADRANT AND PATIENT TOLERATED PROCEDURE WELL. TOTAL REMOVED 6.2 LITERS OF PINK TINGED FLUID. END OF PROCEDURE AT 0915 CATHETER REMOVED AND DRESSING APPLIED. NO BLEEDING NOTED. ALBUMIN 25% 50 GRAMS GIVEN IV PER ALBUMIN PROTOCOL.DISCHARGED INSTRUCTIONS GIVEN TO PATIENT. PATIENT VERBALIZED UNDERSTANDING. PT DISCHARGED VIA W/C @ 0945 PT STABLE, AAO X 3 WITH NO C/O PAIN. PIV REMOVED TO LEFT RPF , CATHETER INTACT, SITE ASYMPTOMATIC.
[2019-12-23 14:19] LABS: APPEARANCE BODY FLUID CLOUDY (CLEAR); COLOR,BODY FLUID DARK YELLOW (LT YELLOW); SPECIMENTYPE,BODY FLUID ASCITES; TOTAL VOLUME,BODY FLUID 6200 mL
[2019-12-23 14:20] LABS: BODY FLUID RBC 7200 /cu. mm.; BODY FLUID WBC 44 /cu. mm.
[2019-12-23 14:23] LABS: BF LYMPHOCYTE 26 %; BF MONOCYTE 49 %
== END ==
LOC: RAH 08:02
PROVIDERS: ATTEND Family Medicine
DX: R18.8 Other ascites (principal); K74.60 Unspecified cirrhosis of liver; K76.6 Portal hypertension; R16.1 Splenomegaly, not elsewhere classified; C22.0 Liver cell carcinoma; Z98.890 Other specified postprocedural states
CPT/HCPCS: 49083; 87071; 87205; 89051; A4215; 96365

== ENCOUNTER → 2020-01-06 | Outpatient (CLI) | payer OTHER ==
[~2020-01-06] MED LIST changes: -ALBUMIN (HUMAN) 25% 200 ML IV PRN; +ALBUMIN (HUMAN) 25% 200 ML IV SCH; +ASCO500C6 PO; +CIPR500S5 PO; +MAGN500C15 PO; +MIDO5TAB4 PO; +MV-M1TAB20 PO; +PANT40TA55 PO; +RIFA550T PO; +VITA1CAP85 PO; +ZINC50TA71 PO
--- NOTE | 2020-01-06 09:44 | NUR ---
U/S GUIDED PARACENTESIS PROCEDURE PERFORMED BY DR. ARROYO PUNCTURE SITE RIGHT LOWER QUADRANT AND PATIENT TOLERATED PROCEDURE WELL. TOTAL REMOVED 7.5 LITERS OF CLOUDY YELLOW FLUID. END OF PROCEDURE AT 0915 CATHETER REMOVED AND DRESSING APPLIED. NO BLEEDING NOTED. ALBUMIN 25% 50 GRAMS GIVEN IV PER ALBUMIN PROTOCOL.DISCHARGED INSTRUCTIONS GIVEN TO PATIENT. PATIENT VERBALIZED UNDERSTANDING. PT DISCHARGED VIA W/C @ 0945 PT STABLE, AAO X 3 WITH NO C/O PAIN. PIV REMOVED TO LEFT RPF , CATHETER INTACT, SITE ASYMPTOMATIC.
[2020-01-06 14:03] LABS: APPEARANCE BODY FLUID CLOUDY (CLEAR); COLOR,BODY FLUID DARK YELLOW (LT YELLOW); SPECIMENTYPE,BODY FLUID ASCITES; TOTAL VOLUME,BODY FLUID 7500 mL
[2020-01-06 14:04] LABS: BODY FLUID RBC 3200 /cu. mm.; BODY FLUID WBC 71 /cu. mm.
[2020-01-06 14:08] LABS: BF EOSINOPHIL 1 %; BF LYMPHOCYTE 47 %; BF MONOCYTE 34 %
== END | disposition home or self-care (01) ==
LOC: RAH 07:32
PROVIDERS: ATTEND Family Medicine
DX: R18.8 Other ascites (principal)
CPT/HCPCS: 49083; 89051; A4215; P9046; 87071; 87205

== ENCOUNTER → 2020-01-27 | Outpatient (CLI) | payer OTHER ==
[~2020-01-27] MED LIST changes: -ASCO500C6 PO; -CARV6.25 PO; -FURO40TA5 PO; -MAGN500C15 PO; -MV-M1TAB20 PO; -SPIR50TA5 PO; -VITA1CAP85 PO; -ZINC50TA71 PO
--- NOTE | 2020-01-27 09:30 | NUR ---
U/S GUIDED PARACENTESIS PROCEDURE PERFORMED BY DR. Cade ROJAS. PUNCTURE SITE RIGHT LOWER QUADRANT AND PATIENT TOLERATED PROCEDURE WELL. TOTAL REMOVED 7 LITERS OF CLOUDY YELLOW FLUID. END OF PROCEDURE AT 0855. CATHETER REMOVED AND DRESSING APPLIED. NO BLEEDING NOTED. ALBUMIN 25% 50 GRAMS GIVEN IV PER ALBUMIN PROTOCOL.DISCHARGED INSTRUCTIONS GIVEN TO PATIENT. PATIENT VERBALIZED UNDERSTANDING. PT DISCHARGED VIA W/C @ 0945 PT STABLE, AAO X 3 WITH NO C/O PAIN. PIV REMOVED TO LEFT RPF , CATHETER INTACT, SITE ASYMPTOMATIC. SPECIMEN SENT TO LAB.
[2020-01-27 12:19] LABS: APPEARANCE BODY FLUID CLEAR (CLEAR); COLOR,BODY FLUID YELLOW (LT YELLOW); SPECIMENTYPE,BODY FLUID ASCITES
[2020-01-27 12:20] LABS: BODY FLUID RBC 2000 /cu. mm.; BODY FLUID WBC 42 /cu. mm.; TOTAL VOLUME,BODY FLUID 7000 mL
[2020-01-27 12:47] LABS: BF LYMPHOCYTE 41 %; BF MESOTHELIAL 34 %
== END ==
LOC: RAH 07:39
PROVIDERS: ATTEND Family Medicine
DX: R18.8 Other ascites (principal)
CPT/HCPCS: 49083; 87071; 87205; 89051; A4215; P9046; 96365

== ENCOUNTER → 2020-02-07 | Outpatient (CLI) | payer OTHER ==
[~2020-02-07] MED LIST changes: +ASCO500C6 PO; +FURO40TA5 PO; +MAGN500C15 PO; +MV-M1TAB20 PO; +SPIR50TA5 PO; +VITA1CAP85 PO; +ZINC50TA71 PO
--- NOTE | 2020-02-07 09:30 | NUR ---
U/S GUIDED PARACENTESIS PROCEDURE PERFORMED BY DR. DOBSON. PUNCTURE SITE RIGHT LOWER QUADRANT AND PATIENT TOLERATED PROCEDURE WELL. TOTAL REMOVED 9.5 LITERS OF YELLOW CLOUDY ASCITES FLUID. END OF PROCEDURE AT 1005. CATHETER REMOVED AND DRESSING APPLIED. NO BLEEDING NOTED. ALBUMIN 25% 50 GRAMS GIVEN IV PER ALBUMIN PROTOCOL. LEFT WRIST PIV DC'D, BANDAID APPLIED, DRESSING DRY AND INTACT. DISCHARGE INSTRUCTIONS GIVEN TO PATIENT. PATIENT VERBALIZED UNDERSTANDING. PT DISCHARGED VIA W/C @ 1045. PT STABLE, AAO X 3 WITH NO C/O PAIN. Addendum: 02/07/20 at 1209 by DHIRAJ SANCHEZ RN RN U/S GUIDED PARACENTESIS PROCEDURE PERFORMED BY DR. DOBSON. PUNCTURE SITE LEFT LOWER QUADRANT AND PATIENT TOLERATED PROCEDURE WELL. TOTAL REMOVED 9.5 LITERS OF YELLOW CLOUDY ASCITES FLUID. END OF PROCEDURE AT 1005. CATHETER REMOVED AND DRESSING APPLIED. NO BLEEDING NOTED. ALBUMIN 25% 50 GRAMS GIVEN IV PER ALBUMIN PROTOCOL. LEFT WRIST PIV DC'D, BANDAID APPLIED, DRESSING DRY AND INTACT. DISCHARGE INSTRUCTIONS GIVEN TO PATIENT. PATIENT VERBALIZED UNDERSTANDING. PT DISCHARGED VIA W/C @ 1045. PT STABLE, AAO X 3 WITH NO C/O PAIN.
[2020-02-07 15:39] LABS: APPEARANCE BODY FLUID CLOUDY (CLEAR); COLOR,BODY FLUID YELLOW (LT YELLOW); SPECIMENTYPE,BODY FLUID ASCITES; TOTAL VOLUME,BODY FLUID 9500 mL
[2020-02-07 15:41] LABS: BODY FLUID WBC 30 /cu. mm.
[2020-02-07 15:42] LABS: BODY FLUID RBC 4175 /cu. mm.
[2020-02-07 15:45] LABS: BF LYMPHOCYTE 67 %; BF OTHER CELLS 5
== END | disposition home or self-care (01) ==
LOC: RAH 07:35
PROVIDERS: ATTEND Family Medicine
DX: R18.8 Other ascites (principal); K76.6 Portal hypertension; Z80.3 Family history of malignant neoplasm of breast; Z20.828 Contact with and (suspected) exposure to other viral communicable diseases
CPT/HCPCS: 36415; 49083; 87071; 87205; 89051; 96365; A4215; C9803; P9046; U0003

== ENCOUNTER 2020-02-14 05:54 | Day surgery (SDC) | payer OTHER ==
[~2020-02-14] VITALS: Ht 177.8 cm; Wt 54.4 kg
[~2020-02-14 05:54] MED LIST changes: -ALBUMIN (HUMAN) 25% 200 ML IV SCH; -ASCO500C6 PO; -FURO40TA5 PO; -MAGN500C15 PO; -MV-M1TAB20 PO; -SPIR50TA5 PO; -VITA1CAP85 PO; -ZINC50TA71 PO
[2020-02-14] MEDS ORDERED: SODIUM CHLORIDE 0.9% 1000ML 1,000 ML IV ONE (06:19)
[2020-02-14 07:20] VITALS: BP 100/65
[2020-02-14] MEDS ORDERED: ZINC50TA71 PO (07:31)
[2020-02-14] MEDS ORDERED: MV-M1TAB20 PO (07:31)
[2020-02-14] MEDS ORDERED: ASCO500C6 PO (07:31)
[2020-02-14] MEDS ORDERED: VITA1CAP85 PO (07:31)
[2020-02-14] MEDS ORDERED: MAGN500C15 PO (07:31)
[2020-02-14] MEDS ORDERED: FURO40TA5 PO (07:31)
[2020-02-14] MEDS ORDERED: SPIR50TA5 PO (07:31)
[2020-02-14] MEDS ORDERED: PROPOFOL 10 MG/ML 20ML VIAL IV ONE (08:13)
[2020-02-14] MEDS ORDERED: MIDAZOLAM HCL 1 MG/ML 2ML VIAL ONE (08:14)
[2020-02-14] MEDS ORDERED: LIDOCAINE HCL 2% 20ML ONE (08:14)
[2020-02-14] MEDS ORDERED: PHENYLEPHRINE HCL 10 MG/ML 1ML VIAL IV ONE (08:16)
[2020-02-14 08:40] VITALS: BP 70/36
[2020-02-14 08:45] VITALS: BP 72/41
[2020-02-14 08:50] VITALS: BP 78/47
[2020-02-14 08:55] VITALS: BP 89/62
[2020-02-14 09:25] VITALS: BP 109/76
== END 2020-02-14 09:35 ==
LOC: DAH 05:54 → ENDO 05:54
PROVIDERS: ATTEND Internal Medicine Gastroenterology
DX: I85.00 Esophageal varices without bleeding (principal); K29.50 Unspecified chronic gastritis without bleeding; K40.90 Unilateral inguinal hernia, without obstruction or gangrene, not specified as recurrent; Z86.010 Personal history of colon polyps; G93.49 Other encephalopathy; E87.1 Hypo-osmolality and hyponatremia; D64.9 Anemia, unspecified; K70.31 Alcoholic cirrhosis of liver with ascites; C22.9 Malignant neoplasm of liver, not specified as primary or secondary; K57.30 Diverticulosis of large intestine without perforation or abscess without bleeding; E55.9 Vitamin D deficiency, unspecified; Z20.828 Contact with and (suspected) exposure to other viral communicable diseases; Z79.899 Other long term (current) drug therapy
CPT/HCPCS: 36415; 43239; 43244; 88305; 88342; A4215; A4221; A4222; A4223; A4606; A4620; A4657; A4663; C9803; J2250; J2370; J2704; J3490; J7030; U0003

== ENCOUNTER → 2020-02-17 | Outpatient (CLI) | payer OTHER ==
[~2020-02-17] MED LIST changes: +ALBUMIN (HUMAN) 25% 200 ML IV SCH; +ASCO500C6 PO; -CIPR500S5 PO; +FURO40TA5 PO; +MAGN500C15 PO; -MIDO5TAB4 PO; +MV-M1TAB20 PO; +SPIR50TA5 PO; +VITA1CAP85 PO; +ZINC50TA71 PO
--- NOTE | 2020-02-17 08:45 | NUR ---
U/S GUIDED PARACENTESIS PROCEDURE PERFORMED BY DR. ROJAS. PUNCTURE SITE RIGHT LOWER QUADRANT AND PATIENT TOLERATED PROCEDURE WELL. TOTAL REMOVED 5.6 LITERS OF YELLOW CLOUDY ASCITES FLUID. END OF PROCEDURE AT 0925. CATHETER REMOVED AND DRESSING APPLIED. NO BLEEDING NOTED. ALBUMIN 25% 50 GRAMS GIVEN IV PER ALBUMIN PROTOCOL. RIGHT FOREARM PIV DC'D, BANDAID APPLIED, DRESSING DRY AND INTACT. DISCHARGE INSTRUCTIONS GIVEN TO PATIENT. PATIENT VERBALIZED UNDERSTANDING. PT DISCHARGED VIA W/C @ 0955. PT STABLE, AAO X 3 WITH NO C/O PAIN.
[2020-02-17 16:34] LABS: SPECIMENTYPE,BODY FLUID ASCITES
[2020-02-17 16:35] LABS: APPEARANCE BODY FLUID CLOUDY (CLEAR); COLOR,BODY FLUID RED (LT YELLOW); TOTAL VOLUME,BODY FLUID 5600 mL
[2020-02-17 16:38] LABS: BODY FLUID WBC 29 /cu. mm.
[2020-02-17 16:39] LABS: BODY FLUID RBC 15250 /cu. mm.
[2020-02-17 16:43] LABS: BF LYMPHOCYTE 68 %; BF MONOCYTE 20 %
== END | disposition home or self-care (01) ==
LOC: RAH 07:44
PROVIDERS: ATTEND Family Medicine
DX: R18.8 Other ascites (principal)
CPT/HCPCS: 49083; 87071; 87205; 89051; 96365; A4215; P9046

== ENCOUNTER → 2020-02-22 | Outpatient (CLI) | payer OTHER ==
[~2020-02-22] MED LIST changes: -ALBUMIN (HUMAN) 25% 200 ML IV SCH
[2020-02-22] MEDS: ALBUMIN (HUMAN) 25% 200 ML IV SCH (10:31)
[2020-02-22 10:39] LABS: BASOPHILS % (AUTO) 0.2 % (0.0-5.0); EOSINOPHILS % (AUTO) 1.8 % (0.0-8.0); LYMPHOCYTES % (AUTO) 7.4 % (21.0-51.0); MEAN CORPUSCULAR HEMOGLOBIN 27.7 pg (27.0-33.0); MEAN CORPUSCULAR HGB CONC 33.2 g/dL (32.0-36.0); MEAN CORPUSCULAR VOLUME 83.3 fL (79-99); MONOCYTES % (AUTO) 15.2 % (3.0-13.0); NEUTROPHILS % (AUTO) 74.2 % (40.0-77.0); PLATELET COUNT (AUTO) 80 K/uL (130-400); RED CELL DISTRIBUTION WIDTH 16.5 % (11.0-15.5); WHITE BLOOD COUNT (AUTO) 4.3 K/uL (4.8-10.8)
--- NOTE | 2020-02-22 10:45 | NUR ---
U/S GUIDED PARACENTESIS PROCEDURE PERFORMED BY DR. NAVARRO. PUNCTURE SITE RIGHT LOWER QUADRANT AND PATIENT TOLERATED PROCEDURE WELL. TOTAL REMOVED 3.0 LITERS OF YELLOW CLOUDY ASCITES FLUID. END OF PROCEDURE AT 1110. CATHETER REMOVED AND DRESSING APPLIED. NO BLEEDING NOTED. ALBUMIN 25% 50 GRAMS GIVEN IV PER ALBUMIN PROTOCOL. RIGHT FOREARM PIV DC'D, BANDAID APPLIED, DRESSING DRY AND INTACT. DISCHARGE INSTRUCTIONS GIVEN TO PATIENT. PATIENT VERBALIZED UNDERSTANDING. PT DISCHARGED VIA W/C @ 1140. PT STABLE, AAO X 3 WITH NO C/O PAIN.
[2020-02-22 11:08] LABS: CREATININE 0.8 mg/dL (0.5-1.5); POTASSIUM 4.5 mmol/L (3.5-5.1)
--- NOTE | 2020-02-22 11:45 | NUR ---
RE: NA 116, CHLORIDE 87 UPON ASSESSING PATIENT NOTED PATIENT ORIENTED X 3. NO COMPLAINTS OF PAIN. PATIENT STATES, "I'VE BEEN HAVING BAD CRAMPS AT HOME ON AND OFF." EXPLAINED TO THE PATIENT HIS SODIUM LEVEL WAS LOW AND THAT IS WHAT'S CONTRIBUTING TO HIS CRAMPS. CALLED PATIENTS SPOUSE, MRS. BETY TEJEDA AND REPORTED TOTAL VOLUME REMOVED, ALBUMIN RECEIVED AND CRITICAL VALUES OF LAB WORK. SHE INFORMED ME PATIENT INFORMED HER I HAD CALLED DR. PETER'S OFFICE TO INFORM THEM OF PATIENT'S CRITICAL VALUES AND WHAT THE DR WOULD LIKE ME TO DO. BUT WAS ONLY ABLE TO LEAVE A MESSAGE. ASKED MRS. TEJEDA IF SHE WOULD LIKE ME TO TAKE MR. BRISEYDA TEJEDA TO THE ER, SPOUSE REFUSED. STATES, "I DONT WANT HIM GOING THERE. THEY'RE GOING TO PUMP HIM UP WITH FLUID AND KEEP HIM THERE FOREVER. NO I DON'T WANT HIM GOING TO THE ER. I'M GOING TO TEXT DR. PETER AND INFORM HIM OF HIS LAB LEVEL'S. DR. PETER WILL TAKE CARE OF HIM AT HIS OFFICE." INFORMED THE PATIENT OF HIS 'S WISHES. HE AGREED.
[2020-02-22 11:50] LABS: INR 1.15 (0.85-1.15); PARTIAL THROMBOPLASTIN TIME 29.4 SEC (26.3-35.5); PROTHROMBIN TIME 12.4 SEC (9.6-11.6)
== END ==
LOC: RAH 09:38
PROVIDERS: ATTEND Family Medicine
DX: R18.8 Other ascites (principal); Z79.01 Long term (current) use of anticoagulants
CPT/HCPCS: 36415; 49083; 80048; 82140; 85025; 85610; 85730; A4215; P9046

== ENCOUNTER → 2020-02-29 | Outpatient (CLI) | payer OTHER ==
[~2020-02-29] MED LIST changes: +ALBUMIN (HUMAN) 25% 200 ML IV SCH
--- NOTE | 2020-02-29 11:00 | NUR ---
U/S GUIDED PARACENTESIS PROCEDURE PERFORMED BY DR. RUIZ. PUNCTURE SITE LEFT LOWER QUADRANT AND PATIENT TOLERATED PROCEDURE WELL. TOTAL REMOVED 5.1 LITERS OF YELLOW CLOUDY ASCITES FLUID. END OF PROCEDURE AT 1130 CATHETER REMOVED AND DRESSING APPLIED. NO BLEEDING NOTED. ALBUMIN 25% 50 GRAMS GIVEN IV PER ALBUMIN PROTOCOL. LEFT FOREARM PIV DC'D, BANDAID APPLIED, DRESSING DRY AND INTACT. DISCHARGE INSTRUCTIONS GIVEN TO PATIENT. PATIENT VERBALIZED UNDERSTANDING. PT DISCHARGED VIA W/C @ 1210. PT STABLE, AAO X 3 WITH NO C/O PAIN.
[2020-02-29 20:08] LABS: APPEARANCE BODY FLUID CLOUDY (CLEAR); BODY FLUID WBC 12 /cu. mm.; COLOR,BODY FLUID ORANGE (LT YELLOW); SPECIMENTYPE,BODY FLUID ASCITES; TOTAL VOLUME,BODY FLUID 5100 mL
[2020-02-29 20:09] LABS: BODY FLUID RBC 12675 /cu. mm.
[2020-02-29 21:51] LABS: BF LYMPHOCYTE 25 %; BF MONOCYTE 5 %
== END ==
LOC: RAH 09:24
PROVIDERS: ATTEND Family Medicine
DX: R18.8 Other ascites (principal); K74.60 Unspecified cirrhosis of liver; K76.6 Portal hypertension; I85.00 Esophageal varices without bleeding; C22.0 Liver cell carcinoma; K92.0 Hematemesis; R16.1 Splenomegaly, not elsewhere classified; Z79.899 Other long term (current) drug therapy
CPT/HCPCS: 49083; 87071; 87205; 89051; A4215; P9046; 96365

== ENCOUNTER → 2020-03-07 | Outpatient (CLI) | payer OTHER ==
--- NOTE | 2020-03-07 09:30 | NUR ---
U/S GUIDED PARACENTESIS PROCEDURE PERFORMED BY DR. Crow SOW. PUNCTURE SITE LEFT LOWER QUADRANT AND PATIENT TOLERATED PROCEDURE WELL. TOTAL REMOVED 3.5 LITERS OF YELLOW CLOUDY ASCITES FLUID. END OF PROCEDURE AT 0900 CATHETER REMOVED AND DRESSING APPLIED. NO BLEEDING NOTED. ALBUMIN 25% 50 GRAMS GIVEN IV PER ALBUMIN PROTOCOL. RT WRIST FOREARM PIV DC'D, BANDAID APPLIED, DRESSING DRY AND INTACT. DISCHARGE INSTRUCTIONS GIVEN TO PATIENT. PATIENT VERBALIZED UNDERSTANDING. PT DISCHARGED VIA W/C @ 0930. PT STABLE, AAO X 3 WITH NO C/O PAIN.
== END | disposition home or self-care (01) ==
LOC: RAH 07:29
PROVIDERS: ATTEND Family Medicine
DX: R18.8 Other ascites (principal)
CPT/HCPCS: 49083; 96365; A4215; P9046

== ENCOUNTER → 2020-03-16 | Outpatient (CLI) | payer OTHER ==
--- NOTE | 2020-03-16 09:45 | NUR ---
U/S GUIDED PARACENTESIS PROCEDURE PERFORMED BY DR. Crow SOW. PUNCTURE SITE LEFT LOWER QUADRANT AND PATIENT TOLERATED PROCEDURE WELL. TOTAL REMOVED 6 LITERS OF YELLOW CLOUDY ASCITES FLUID. END OF PROCEDURE AT 0910 CATHETER REMOVED AND DRESSING APPLIED. NO BLEEDING NOTED. ALBUMIN 25% 50 GRAMS GIVEN IV PER ALBUMIN PROTOCOL. RT WRIST FOREARM PIV DC'D, BANDAID APPLIED, DRESSING DRY AND INTACT. DISCHARGE INSTRUCTIONS GIVEN TO PATIENT. PATIENT VERBALIZED UNDERSTANDING. PT DISCHARGED VIA W/C @ 0945. PT STABLE, AAO X 3 WITH NO C/O PAIN.
[2020-03-16 11:55] LABS: APPEARANCE BODY FLUID CLOUDY (CLEAR); SPECIMENTYPE,BODY FLUID ASCITES
[2020-03-16 11:56] LABS: BODY FLUID RBC 7120 /cu. mm.; BODY FLUID WBC 10 /cu. mm.; COLOR,BODY FLUID ORANGE (LT YELLOW); TOTAL VOLUME,BODY FLUID 6000 mL
[2020-03-16 13:14] LABS: BF LYMPHOCYTE 72 %; BF MESOTHELIAL 20 %; BF MONOCYTE 3 %
== END | disposition home or self-care (01) ==
LOC: RAH 07:37
PROVIDERS: ATTEND Family Medicine
DX: R18.8 Other ascites (principal); K74.60 Unspecified cirrhosis of liver; D69.6 Thrombocytopenia, unspecified; Z98.890 Other specified postprocedural states; Z79.899 Other long term (current) drug therapy; Z80.3 Family history of malignant neoplasm of breast; Z83.3 Family history of diabetes mellitus; Z72.89 Other problems related to lifestyle; Z87.891 Personal history of nicotine dependence
CPT/HCPCS: 49083; 87071; 87205; 89051; A4215; P9046; 96365

== ENCOUNTER → 2020-03-23 | Outpatient (CLI) | payer OTHER ==
[~2020-03-23] MED LIST changes: +ALBUMIN (HUMAN) 25% 200 ML IV ONE; -ALBUMIN (HUMAN) 25% 200 ML IV SCH
--- NOTE | 2020-03-23 09:00 | NUR ---
U/S GUIDED PARACENTESIS PROCEDURE PERFORMED BY DR. GALLARDO. PUNCTURE SITE LEFT LOWER QUADRANT AND PATIENT TOLERATED PROCEDURE WELL. TOTAL REMOVED 5.0 LITERS OF YELLOW CLOUDY ASCITES FLUID. END OF PROCEDURE AT 0925. CATHETER REMOVED AND DRESSING APPLIED. NO BLEEDING NOTED. ALBUMIN 25% 50 GRAMS GIVEN IV PER ALBUMIN PROTOCOL. RIGHT FOREARM PIV DC'D, BANDAID APPLIED, DRESSING DRY AND INTACT. DISCHARGE INSTRUCTIONS GIVEN TO PATIENT. PATIENT VERBALIZED UNDERSTANDING. PT DISCHARGED VIA W/C @ 0945. PT STABLE, AAO X 3 WITH NO C/O PAIN.
[2020-03-23 15:26] LABS: BODY FLUID WBC 31 /cu. mm.; COLOR,BODY FLUID ORANGE (LT YELLOW); SPECIMENTYPE,BODY FLUID ASCITES; TOTAL VOLUME,BODY FLUID 5100 mL
[2020-03-23 15:27] LABS: BODY FLUID RBC 7250 /cu. mm.
[2020-03-23 15:28] LABS: APPEARANCE BODY FLUID TURBID (CLEAR)
[2020-03-23 15:34] LABS: BF LYMPHOCYTE 65 %; BF MONOCYTE 4 %
== END | disposition home or self-care (01) ==
LOC: RAH 07:27
PROVIDERS: ATTEND Family Medicine
DX: R18.8 Other ascites (principal); K74.60 Unspecified cirrhosis of liver; D69.6 Thrombocytopenia, unspecified; Z83.3 Family history of diabetes mellitus; Z80.3 Family history of malignant neoplasm of breast; Z98.890 Other specified postprocedural states; Z79.899 Other long term (current) drug therapy; Z72.89 Other problems related to lifestyle; Z87.891 Personal history of nicotine dependence
CPT/HCPCS: 49083; 87071; 87205; 89051; A4215; P9046; 96365

== ENCOUNTER → 2020-03-30 | Outpatient (CLI) | payer OTHER ==
[~2020-03-30] MED LIST changes: -ALBUMIN (HUMAN) 25% 200 ML IV ONE; +ALBUMIN (HUMAN) 25% 200 ML IV SCH; +CARV6.25 PO; +CIPR500S5 PO; +MIDO5TAB4 PO
--- NOTE | 2020-03-30 10:15 | NUR ---
U/S GUIDED PARACENTESIS PROCEDURE PERFORMED BY DR. Crow SOW. PUNCTURE SITE RIGHT LOWER QUADRANT AND PATIENT TOLERATED PROCEDURE WELL. TOTAL REMOVED 4.5 LITERS OF YELLOW CLOUDY ASCITES FLUID. END OF PROCEDURE AT 0945. CATHETER REMOVED AND DRESSING APPLIED. NO BLEEDING NOTED. ALBUMIN 25% 50 GRAMS GIVEN IV PER ALBUMIN PROTOCOL. RIGHT FOREARM PIV DC'D, BANDAID APPLIED, DRESSING DRY AND INTACT. DISCHARGE INSTRUCTIONS GIVEN TO PATIENT. PATIENT VERBALIZED UNDERSTANDING. PT DISCHARGED VIA W/C @ 1015. PT STABLE, AAO X 3 WITH NO C/O PAIN.
[2020-03-30 11:52] LABS: INR 1.17 (0.85-1.15); PROTHROMBIN TIME 12.4 SEC (9.6-11.6)
[2020-03-30 11:54] LABS: PARTIAL THROMBOPLASTIN TIME 29.3 SEC (26.3-35.5)
[2020-03-30 13:35] LABS: APPEARANCE BODY FLUID CLOUDY (CLEAR); COLOR,BODY FLUID RED (LT YELLOW); SPECIMENTYPE,BODY FLUID ASCITES; TOTAL VOLUME,BODY FLUID 9000 mL
[2020-03-30 13:36] LABS: BODY FLUID RBC 8000 /cu. mm.; BODY FLUID WBC 71 /cu. mm.
[2020-03-30 13:48] LABS: BF EOSINOPHIL 1 %; BF LYMPHOCYTE 62 %; BF MONOCYTE 31 %
== END | disposition home or self-care (01) ==
LOC: RAH 09:53
PROVIDERS: ATTEND Family Medicine
DX: K74.60 Unspecified cirrhosis of liver (principal); R18.8 Other ascites; Z79.899 Other long term (current) drug therapy; Z87.891 Personal history of nicotine dependence; Z79.01 Long term (current) use of anticoagulants
CPT/HCPCS: 36415; 49083; 85610; 85730; 87071; 87205; 89051; 96365; A4215; P9046

== ENCOUNTER → 2020-04-05 | Outpatient (CLI) | payer OTHER ==
[~2020-04-05] MED LIST changes: -CARV6.25 PO; -CIPR500S5 PO; -MIDO5TAB4 PO
== END | disposition home or self-care (01) ==
LOC: RAH 07:06
PROVIDERS: ATTEND Family Medicine
DX: R18.8 Other ascites (principal); K74.60 Unspecified cirrhosis of liver; D69.6 Thrombocytopenia, unspecified; Z83.3 Family history of diabetes mellitus; Z80.3 Family history of malignant neoplasm of breast; Z98.890 Other specified postprocedural states; Z79.899 Other long term (current) drug therapy; Z87.891 Personal history of nicotine dependence; Z72.89 Other problems related to lifestyle
CPT/HCPCS: 49083; A4215; P9046; 96365

== ENCOUNTER → 2020-04-12 | Outpatient (CLI) | payer OTHER ==
[2020-04-12 13:47] LABS: APPEARANCE BODY FLUID CLEAR (CLEAR); BODY FLUID RBC 2225 /cu. mm.; BODY FLUID WBC 60 /cu. mm.; COLOR,BODY FLUID YELLOW (LT YELLOW); SPECIMENTYPE,BODY FLUID ASCITES; TOTAL VOLUME,BODY FLUID 5000 mL
[2020-04-12 14:11] LABS: BF LYMPHOCYTE 51 %; BF MESOTHELIAL 15 %; BF MONOCYTE 33 %
== END | disposition home or self-care (01) ==
LOC: RAH 07:34
PROVIDERS: ATTEND Family Medicine
DX: R18.8 Other ascites (principal); K74.60 Unspecified cirrhosis of liver; D64.9 Anemia, unspecified; D69.6 Thrombocytopenia, unspecified; Z83.3 Family history of diabetes mellitus; Z80.3 Family history of malignant neoplasm of breast; Z98.890 Other specified postprocedural states; Z79.899 Other long term (current) drug therapy; Z72.89 Other problems related to lifestyle; Z87.891 Personal history of nicotine dependence
CPT/HCPCS: 49083; 87071; 87205; 89051; A4215; P9046

== ENCOUNTER → 2020-04-20 | Outpatient (CLI) | payer OTHER ==
[~2020-04-20] MED LIST changes: +ALBUMIN (HUMAN) 25% 200 ML IV ONE; -ALBUMIN (HUMAN) 25% 200 ML IV SCH
[2020-04-20 17:57] LABS: APPEARANCE BODY FLUID CLOUDY (CLEAR); COLOR,BODY FLUID DARK YELLOW (LT YELLOW); SPECIMENTYPE,BODY FLUID ASCITES; TOTAL VOLUME,BODY FLUID 5500 mL
[2020-04-20 17:58] LABS: BODY FLUID RBC 4075 /cu. mm.; BODY FLUID WBC 39 /cu. mm.
[2020-04-20 18:34] LABS: BF LYMPHOCYTE 73 %; BF MESOTHELIAL 11 %; BF MONOCYTE 4 %
== END | disposition home or self-care (01) ==
LOC: RAH 07:30
PROVIDERS: ATTEND Family Medicine
DX: R18.8 Other ascites (principal); K74.60 Unspecified cirrhosis of liver
CPT/HCPCS: 49083; 87071; 87205; 89051; 96365; A4215; P9046

== ENCOUNTER → 2020-05-02 | Outpatient (CLI) | payer OTHER ==
[~2020-05-02] MED LIST changes: -ALBUMIN (HUMAN) 25% 200 ML IV ONE; +ALBUMIN (HUMAN) 25% 200 ML IV SCH
[2020-05-02 11:52] LABS: INR 1.29 (0.85-1.15); PROTHROMBIN TIME 13.5 SEC (9.6-11.6)
[2020-05-02 11:53] LABS: PARTIAL THROMBOPLASTIN TIME 32.8 SEC (26.3-35.5)
[2020-05-02 14:11] LABS: APPEARANCE BODY FLUID CLOUDY (CLEAR); COLOR,BODY FLUID DARK YELLOW (LT YELLOW); SPECIMENTYPE,BODY FLUID ASCITES
[2020-05-02 14:12] LABS: BODY FLUID RBC 5300 /cu. mm.; BODY FLUID WBC 67 /cu. mm.; TOTAL VOLUME,BODY FLUID 5500 mL
[2020-05-02 14:14] LABS: BF LYMPHOCYTE 67 %; BF MONOCYTE 25 %
== END | disposition home or self-care (01) ==
LOC: RAH 09:47
PROVIDERS: ATTEND Family Medicine
DX: R18.8 Other ascites (principal); K76.6 Portal hypertension; J06.9 Acute upper respiratory infection, unspecified; I85.00 Esophageal varices without bleeding; R16.1 Splenomegaly, not elsewhere classified; Z98.890 Other specified postprocedural states; Z80.3 Family history of malignant neoplasm of breast; Z83.3 Family history of diabetes mellitus; Z72.89 Other problems related to lifestyle; Z87.891 Personal history of nicotine dependence; Z79.899 Other long term (current) drug therapy; Z86.2 Personal history of diseases of the blood and blood-forming organs and certain disorders involving the immune mechanism; Z79.01 Long term (current) use of anticoagulants
CPT/HCPCS: 36415; 49083; 85610; 85730; 87071; 87205; 89051; A4215; P9046

== ENCOUNTER → 2020-05-11 | Outpatient (CLI) | payer OTHER ==
[2020-05-11 14:08] LABS: APPEARANCE BODY FLUID CLOUDY (CLEAR); COLOR,BODY FLUID YELLOW (LT YELLOW); SPECIMENTYPE,BODY FLUID ASCITES; TOTAL VOLUME,BODY FLUID 4000 mL
[2020-05-11 14:09] LABS: BODY FLUID RBC 3325 /cu. mm.; BODY FLUID WBC 31 /cu. mm.
[2020-05-11 14:15] LABS: BF LYMPHOCYTE 42 %; BF MONOCYTE 50 %
== END | disposition home or self-care (01) ==
LOC: RAH 07:51
PROVIDERS: ATTEND Family Medicine
DX: R18.8 Other ascites (principal); K74.60 Unspecified cirrhosis of liver; K76.6 Portal hypertension; J06.9 Acute upper respiratory infection, unspecified; I85.00 Esophageal varices without bleeding; R16.1 Splenomegaly, not elsewhere classified; Z98.890 Other specified postprocedural states; Z80.3 Family history of malignant neoplasm of breast; Z83.3 Family history of diabetes mellitus; Z72.89 Other problems related to lifestyle; Z87.891 Personal history of nicotine dependence; Z79.899 Other long term (current) drug therapy; Z86.2 Personal history of diseases of the blood and blood-forming organs and certain disorders involving the immune mechanism; Z79.01 Long term (current) use of anticoagulants
CPT/HCPCS: 49083; 87071; 87205; 89051; A4215; P9046

== ENCOUNTER → 2020-05-18 | Outpatient (CLI) | payer OTHER ==
[2020-05-18 17:42] LABS: APPEARANCE BODY FLUID CLOUDY (CLEAR); SPECIMENTYPE,BODY FLUID ASCITES
[2020-05-18 17:43] LABS: BODY FLUID WBC 37 /cu. mm.; COLOR,BODY FLUID ORANGE (LT YELLOW); TOTAL VOLUME,BODY FLUID 7500 mL
[2020-05-18 17:44] LABS: BODY FLUID RBC 5197 /cu. mm.
[2020-05-18 18:28] LABS: BF LYMPHOCYTE 74 %; BF MONOCYTE 2 %
== END | disposition home or self-care (01) ==
LOC: RAH 10:05
PROVIDERS: ATTEND Family Medicine
DX: R18.8 Other ascites (principal); K74.69 Other cirrhosis of liver; K76.6 Portal hypertension; J06.9 Acute upper respiratory infection, unspecified; I85.00 Esophageal varices without bleeding; R16.1 Splenomegaly, not elsewhere classified; Z98.890 Other specified postprocedural states; Z80.3 Family history of malignant neoplasm of breast; Z83.3 Family history of diabetes mellitus; Z72.89 Other problems related to lifestyle; Z87.891 Personal history of nicotine dependence; Z79.899 Other long term (current) drug therapy; Z86.2 Personal history of diseases of the blood and blood-forming organs and certain disorders involving the immune mechanism; Z79.01 Long term (current) use of anticoagulants
CPT/HCPCS: 49083; 87071; 87205; 89051; A4215; P9046; 96365

== ENCOUNTER → 2020-05-25 | Outpatient (CLI) | payer OTHER | END | disposition home or self-care (01) | LOC: RAH 07:31 | PROVIDERS: ATTEND Family Medicine | DX: R18.8 Other ascites (principal); K74.60 Unspecified cirrhosis of liver; K76.6 Portal hypertension; J06.9 Acute upper respiratory infection, unspecified; I85.00 Esophageal varices without bleeding; R16.1 Splenomegaly, not elsewhere classified; Z98.890 Other specified postprocedural states; Z80.3 Family history of malignant neoplasm of breast; Z83.3 Family history of diabetes mellitus; Z72.89 Other problems related to lifestyle; Z87.891 Personal history of nicotine dependence; Z79.899 Other long term (current) drug therapy; Z86.2 Personal history of diseases of the blood and blood-forming organs and certain disorders involving the immune mechanism; Z79.01 Long term (current) use of anticoagulants | CPT/HCPCS: 49083; A4215; P9046; 96365 ==

== ENCOUNTER → 2020-06-01 | Outpatient (CLI) | payer OTHER ==
[2020-06-01 15:34] LABS: APPEARANCE BODY FLUID SLIGHTLY CLOUDY (CLEAR); COLOR,BODY FLUID YELLOW (LT YELLOW); SPECIMENTYPE,BODY FLUID ASCITES
[2020-06-01 15:35] LABS: BODY FLUID WBC 41 /cu. mm.; TOTAL VOLUME,BODY FLUID 6400 mL
[2020-06-01 15:36] LABS: BODY FLUID RBC 2925 /cu. mm.
[2020-06-01 15:39] LABS: BF LYMPHOCYTE 71 %; BF MONOCYTE 26 %
== END ==
LOC: RAH 07:35
PROVIDERS: ATTEND Family Medicine
DX: R18.8 Other ascites (principal); J06.9 Acute upper respiratory infection, unspecified; K74.60 Unspecified cirrhosis of liver; K76.6 Portal hypertension; I85.00 Esophageal varices without bleeding; C22.0 Liver cell carcinoma; R16.1 Splenomegaly, not elsewhere classified; Z86.2 Personal history of diseases of the blood and blood-forming organs and certain disorders involving the immune mechanism; Z79.899 Other long term (current) drug therapy
CPT/HCPCS: 49083; 87071; 87205; 89051; A4215; P9046; 96365

== ENCOUNTER → 2020-06-08 | Outpatient (CLI) | payer OTHER ==
[2020-06-08 09:59] LABS: INR 1.32 (0.85-1.15)
[2020-06-08 13:54] LABS: APPEARANCE BODY FLUID CLOUDY (CLEAR); BODY FLUID WBC 78 /cu. mm.; COLOR,BODY FLUID DARK YELLOW (LT YELLOW); SPECIMENTYPE,BODY FLUID ASCITES; TOTAL VOLUME,BODY FLUID 5000 mL
[2020-06-08 13:55] LABS: BODY FLUID RBC 4775 /cu. mm.
[2020-06-08 14:00] LABS: BF LYMPHOCYTE 42 %; BF MONOCYTE 48 %
== END | disposition home or self-care (01) ==
LOC: RAH 09:10
PROVIDERS: ATTEND Family Medicine
DX: R18.8 Other ascites (principal)
CPT/HCPCS: 36415; 49083; 85610; 85730; 87071; 87205; 89051; 96365; A4215; P9046

== ENCOUNTER → 2020-06-15 | Outpatient (CLI) | payer OTHER ==
[2020-06-15 15:27] LABS: APPEARANCE BODY FLUID CLOUDY (CLEAR); COLOR,BODY FLUID YELLOW (LT YELLOW); SPECIMENTYPE,BODY FLUID ASCITES; TOTAL VOLUME,BODY FLUID 4700 mL
[2020-06-15 15:28] LABS: BODY FLUID RBC 4300 /cu. mm.; BODY FLUID WBC 43 /cu. mm.
[2020-06-15 15:34] LABS: BF LYMPHOCYTE 83 %; BF MESOTHELIAL 1 %; BF OTHER CELLS 1
== END | disposition home or self-care (01) ==
LOC: RAH 07:48
PROVIDERS: ATTEND Family Medicine
DX: R18.8 Other ascites (principal); K76.6 Portal hypertension; D61.818 Other pancytopenia; K74.69 Other cirrhosis of liver; Z98.890 Other specified postprocedural states; Z86.010 Personal history of colon polyps; Z83.3 Family history of diabetes mellitus; Z80.3 Family history of malignant neoplasm of breast; Z85.05 Personal history of malignant neoplasm of liver
CPT/HCPCS: 49083; 87071; 87205; 89051; A4215; 96365; P9046

== ENCOUNTER → 2020-06-22 | Outpatient (CLI) | payer OTHER ==
[2020-06-22 14:52] LABS: APPEARANCE BODY FLUID CLOUDY (CLEAR); BODY FLUID WBC 29 /cu. mm.; COLOR,BODY FLUID DARK YELLOW (LT YELLOW); SPECIMENTYPE,BODY FLUID ASCITES; TOTAL VOLUME,BODY FLUID 4500 mL
[2020-06-22 14:53] LABS: BODY FLUID RBC 4675 /cu. mm.
[2020-06-22 15:00] LABS: BF LYMPHOCYTE 79 %; BF MESOTHELIAL 8 %; BF MONOCYTE 7 %
== END | disposition home or self-care (01) ==
LOC: RAH 10:00
PROVIDERS: ATTEND Family Medicine
DX: R18.8 Other ascites (principal)
CPT/HCPCS: 49083; 87071; 87205; 89051; A4215; P9046

== ENCOUNTER → 2020-06-29 | Outpatient (CLI) | payer OTHER ==
[~2020-06-29] MED LIST changes: +ALBUMIN (HUMAN) 25% 200 ML IV ONE; -ALBUMIN (HUMAN) 25% 200 ML IV SCH
[2020-06-29 14:08] LABS: APPEARANCE BODY FLUID CLEAR (CLEAR); SPECIMENTYPE,BODY FLUID ASCITES
[2020-06-29 14:09] LABS: COLOR,BODY FLUID ORANGE (LT YELLOW); TOTAL VOLUME,BODY FLUID 5300 mL
[2020-06-29 14:10] LABS: BODY FLUID RBC 4625 /cu. mm.; BODY FLUID WBC 39 /cu. mm.
[2020-06-29 14:20] LABS: BF LYMPHOCYTE 31 %; BF MESOTHELIAL 2 %; BF MONOCYTE 35 %
== END ==
LOC: RAH 07:45
PROVIDERS: ATTEND Family Medicine
DX: R18.8 Other ascites (principal)
CPT/HCPCS: 49083; 87071; 87205; 89051; A4215; P9046; 96365

== ENCOUNTER → 2020-07-06 | Outpatient (CLI) | payer OTHER ==
[~2020-07-06] MED LIST changes: -ALBUMIN (HUMAN) 25% 200 ML IV ONE; +ALBUMIN (HUMAN) 25% 200 ML IV SCH
[2020-07-06 09:18] LABS: INR 1.32 (0.85-1.15)
[2020-07-06 09:19] LABS: PARTIAL THROMBOPLASTIN TIME 33.6 SEC (26.3-35.5)
[2020-07-06 14:00] LABS: APPEARANCE BODY FLUID CLOUDY (CLEAR); COLOR,BODY FLUID DARK YELLOW (LT YELLOW); SPECIMENTYPE,BODY FLUID ASCITES; TOTAL VOLUME,BODY FLUID 4500 mL
[2020-07-06 14:01] LABS: BODY FLUID RBC 6400 /cu. mm.; BODY FLUID WBC 48 /cu. mm.
[2020-07-06 14:03] LABS: BF LYMPHOCYTE 65 %; BF MONOCYTE 33 %
== END ==
LOC: RAH 07:28
PROVIDERS: ATTEND Family Medicine
DX: R18.8 Other ascites (principal); Z79.01 Long term (current) use of anticoagulants
CPT/HCPCS: 36415; 49083; 85610; 85730; 87071; 87205; 89051; A4215; P9046; 96365

== ENCOUNTER → 2020-07-13 | Outpatient (CLI) | payer OTHER ==
[~2020-07-13] MED LIST changes: +ALBUMIN (HUMAN) 25% 200 ML IV ONE; -ALBUMIN (HUMAN) 25% 200 ML IV SCH
[2020-07-13 13:09] LABS: APPEARANCE BODY FLUID CLOUDY (CLEAR); COLOR,BODY FLUID DARK YELLOW (LT YELLOW); SPECIMENTYPE,BODY FLUID ASCITES
[2020-07-13 13:10] LABS: BODY FLUID RBC 2475 /cu. mm.; BODY FLUID WBC 222 /cu. mm.; TOTAL VOLUME,BODY FLUID 5000 mL
[2020-07-13 13:26] LABS: BF LYMPHOCYTE 44 %; BF MESOTHELIAL 21 %; BF MONOCYTE 10 %; BF OTHER CELLS 1
== END | disposition home or self-care (01) ==
LOC: RAH 07:18
PROVIDERS: ATTEND Family Medicine
DX: R18.8 Other ascites (principal); K74.60 Unspecified cirrhosis of liver; K76.6 Portal hypertension; E11.22 Type 2 diabetes mellitus with diabetic chronic kidney disease; I13.0 Hypertensive heart and chronic kidney disease with heart failure and stage 1 through stage 4 chronic kidney disease, or unspecified chronic kidney disease; N18.9 Chronic kidney disease, unspecified; I50.9 Heart failure, unspecified; E11.51 Type 2 diabetes mellitus with diabetic peripheral angiopathy without gangrene; E78.5 Hyperlipidemia, unspecified; J44.9 Chronic obstructive pulmonary disease, unspecified; F32.9 Major depressive disorder, single episode, unspecified; Z79.899 Other long term (current) drug therapy; Z98.890 Other specified postprocedural states; Z79.01 Long term (current) use of anticoagulants
CPT/HCPCS: 49083; 87071; 87205; 89051; A4215; P9046; 96365

== ENCOUNTER → 2020-07-20 | Outpatient (CLI) | payer OTHER ==
[2020-07-20 18:15] LABS: APPEARANCE BODY FLUID CLOUDY (CLEAR); BODY FLUID WBC 35 /cu. mm.; COLOR,BODY FLUID YELLOW (LT YELLOW); SPECIMENTYPE,BODY FLUID ASCITES; TOTAL VOLUME,BODY FLUID 4700 mL
[2020-07-20 18:16] LABS: BODY FLUID RBC 4775 /cu. mm.
[2020-07-20 18:19] LABS: BF LYMPHOCYTE 74 %; BF MESOTHELIAL 3 %; BF OTHER CELLS 1
== END | disposition home or self-care (01) ==
LOC: RAH 07:25
PROVIDERS: ATTEND Family Medicine
DX: R18.8 Other ascites (principal); K76.6 Portal hypertension; D61.818 Other pancytopenia; K74.69 Other cirrhosis of liver; Z98.890 Other specified postprocedural states; Z86.010 Personal history of colon polyps; Z83.3 Family history of diabetes mellitus; Z80.3 Family history of malignant neoplasm of breast; Z85.05 Personal history of malignant neoplasm of liver; Z79.899 Other long term (current) drug therapy
CPT/HCPCS: 49083; 87071; 87205; 89051; A4215; P9046; 96365

== ENCOUNTER → 2020-07-27 | Outpatient (CLI) | payer OTHER ==
[~2020-07-27] MED LIST changes: -ALBUMIN (HUMAN) 25% 200 ML IV ONE; +ALBUMIN (HUMAN) 25% 200 ML IV SCH
[2020-07-27 12:34] LABS: APPEARANCE BODY FLUID CLOUDY (CLEAR); COLOR,BODY FLUID YELLOW (LT YELLOW); SPECIMENTYPE,BODY FLUID ASCITES
[2020-07-27 12:35] LABS: BODY FLUID RBC 3325 /cu. mm.; BODY FLUID WBC 102 /cu. mm.
[2020-07-27 12:57] LABS: BF LYMPHOCYTE 52 %; BF MESOTHELIAL 18 %; BF MONOCYTE 30 %
[2020-07-27 13:13] LABS: TOTAL VOLUME,BODY FLUID 4500 mL
== END | disposition home or self-care (01) ==
LOC: RAH 07:27
PROVIDERS: ATTEND Family Medicine
DX: R18.8 Other ascites (principal); K74.60 Unspecified cirrhosis of liver; K76.6 Portal hypertension; E11.22 Type 2 diabetes mellitus with diabetic chronic kidney disease; I13.0 Hypertensive heart and chronic kidney disease with heart failure and stage 1 through stage 4 chronic kidney disease, or unspecified chronic kidney disease; N18.9 Chronic kidney disease, unspecified; I50.9 Heart failure, unspecified; E11.51 Type 2 diabetes mellitus with diabetic peripheral angiopathy without gangrene; E78.5 Hyperlipidemia, unspecified; J44.9 Chronic obstructive pulmonary disease, unspecified; F32.9 Major depressive disorder, single episode, unspecified; Z79.899 Other long term (current) drug therapy; Z98.890 Other specified postprocedural states; Z79.01 Long term (current) use of anticoagulants
CPT/HCPCS: 49083; 87071; 87205; 89051; A4215; P9046

== ENCOUNTER → 2020-08-03 | Outpatient (CLI) | payer OTHER ==
[2020-08-03 09:00] LABS: INR 1.27 (0.85-1.15); PROTHROMBIN TIME 13.5 SEC (9.6-11.6)
[2020-08-03 09:01] LABS: PARTIAL THROMBOPLASTIN TIME 31.3 SEC (26.3-35.5)
[2020-08-03 15:23] LABS: APPEARANCE BODY FLUID SLIGHTLY CLOUDY (CLEAR); COLOR,BODY FLUID YELLOW (LT YELLOW); SPECIMENTYPE,BODY FLUID ASCITES; TOTAL VOLUME,BODY FLUID 4300 mL
[2020-08-03 15:24] LABS: BODY FLUID WBC 53 /cu. mm.
[2020-08-03 15:25] LABS: BODY FLUID RBC 435 /cu. mm.
[2020-08-03 15:28] LABS: BF LYMPHOCYTE 90 %; BF OTHER CELLS 1
== END | disposition home or self-care (01) ==
LOC: RAH 07:23
PROVIDERS: ATTEND Family Medicine
DX: R18.8 Other ascites (principal); K74.60 Unspecified cirrhosis of liver; K76.6 Portal hypertension; E11.22 Type 2 diabetes mellitus with diabetic chronic kidney disease; I13.0 Hypertensive heart and chronic kidney disease with heart failure and stage 1 through stage 4 chronic kidney disease, or unspecified chronic kidney disease; N18.9 Chronic kidney disease, unspecified; I50.9 Heart failure, unspecified; E78.5 Hyperlipidemia, unspecified; J44.9 Chronic obstructive pulmonary disease, unspecified; F32.9 Major depressive disorder, single episode, unspecified; Z79.899 Other long term (current) drug therapy; Z79.01 Long term (current) use of anticoagulants; Z98.890 Other specified postprocedural states
CPT/HCPCS: 36415; 49083; 85610; 85730; 87071; 87205; 89051; A4215; P9046; 96365

== ENCOUNTER → 2020-08-10 | Outpatient (CLI) | payer OTHER | LOC: RAH 07:21 | PROVIDERS: ATTEND Family Medicine | DX: R18.8 Other ascites (principal) | CPT/HCPCS: 49083; A4215; P9046; 96365 ==

== ENCOUNTER → 2020-08-17 | Outpatient (CLI) | payer OTHER ==
[2020-08-17 14:30] LABS: APPEARANCE BODY FLUID CLOUDY (CLEAR); COLOR,BODY FLUID YELLOW (LT YELLOW); SPECIMENTYPE,BODY FLUID ASCITES; TOTAL VOLUME,BODY FLUID 4600 mL
[2020-08-17 14:31] LABS: BODY FLUID RBC 1950 /cu. mm.; BODY FLUID WBC 78 /cu. mm.
[2020-08-17 14:35] LABS: BF LYMPHOCYTE 67 %; BF MONOCYTE 29 %
== END ==
LOC: RAH 07:25
PROVIDERS: ATTEND Family Medicine
DX: R18.8 Other ascites (principal)
CPT/HCPCS: 49083; 87071; 87205; 89051; A4215; P9046; 96365

== ENCOUNTER → 2020-08-24 | Outpatient (CLI) | payer OTHER | LOC: RAH 07:27 | PROVIDERS: ATTEND Family Medicine | DX: R18.8 Other ascites (principal); K74.60 Unspecified cirrhosis of liver; R64 Cachexia; D61.818 Other pancytopenia; K76.6 Portal hypertension; C22.0 Liver cell carcinoma; R16.1 Splenomegaly, not elsewhere classified; D69.6 Thrombocytopenia, unspecified; Z79.899 Other long term (current) drug therapy | CPT/HCPCS: 49083; A4215; P9046; 96365 ==

== ENCOUNTER → 2020-08-29 | Outpatient (CLI) | payer OTHER ==
[~2020-08-29] MED LIST changes: -ALBUMIN (HUMAN) 25% 200 ML IV SCH
== END | disposition home or self-care (01) ==
LOC: RAH 08:45
PROVIDERS: ATTEND Internal Medicine Gastroenterology
DX: K70.31 Alcoholic cirrhosis of liver with ascites (principal)
CPT/HCPCS: 76700; 93975

== ENCOUNTER → 2020-08-31 | Outpatient (CLI) | payer OTHER ==
[~2020-08-31] MED LIST changes: +ALBUMIN (HUMAN) 25% 200 ML IV SCH
[2020-08-31 13:21] LABS: SPECIMENTYPE,BODY FLUID ASCITES
[2020-08-31 13:22] LABS: APPEARANCE BODY FLUID CLOUDY (CLEAR); COLOR,BODY FLUID DARK YELLOW (LT YELLOW); TOTAL VOLUME,BODY FLUID 4700 mL
[2020-08-31 13:23] LABS: BODY FLUID WBC 63 /cu. mm.
[2020-08-31 13:24] LABS: BODY FLUID RBC 3875 /cu. mm.
[2020-08-31 13:29] LABS: BF LYMPHOCYTE 36 %; BF MONOCYTE 52 %
== END ==
LOC: RAH 07:31
PROVIDERS: ATTEND Family Medicine
DX: R18.8 Other ascites (principal)
CPT/HCPCS: 49083; 87071; 87205; 89051; A4215; P9046; 96365

== ENCOUNTER → 2020-09-07 | Outpatient (CLI) | payer OTHER ==
[2020-09-07 10:17] LABS: INR 1.26 (0.85-1.15); PROTHROMBIN TIME 13.4 SEC (9.6-11.6)
[2020-09-07 10:18] LABS: PARTIAL THROMBOPLASTIN TIME 32.5 SEC (26.3-35.5)
[2020-09-07 13:26] LABS: APPEARANCE BODY FLUID CLEAR (CLEAR); BODY FLUID WBC 68 /cu. mm.; COLOR,BODY FLUID YELLOW (LT YELLOW); SPECIMENTYPE,BODY FLUID ASCITES; TOTAL VOLUME,BODY FLUID 4500 mL
[2020-09-07 13:27] LABS: BODY FLUID RBC 1925 /cu. mm.
[2020-09-07 13:34] LABS: BF LYMPHOCYTE 43 %; BF MESOTHELIAL 45 %; BF MONOCYTE 11 %
== END | disposition home or self-care (01) ==
LOC: RAH 07:30
PROVIDERS: ATTEND Family Medicine
DX: R18.8 Other ascites (principal); K74.60 Unspecified cirrhosis of liver; R64 Cachexia; D61.818 Other pancytopenia; K76.6 Portal hypertension; D69.6 Thrombocytopenia, unspecified; Z98.890 Other specified postprocedural states; Z79.899 Other long term (current) drug therapy; Z79.01 Long term (current) use of anticoagulants
CPT/HCPCS: 36415; 49083; 85610; 85730; 87071; 87205; 89051; A4215; P9046

== ENCOUNTER → 2020-09-14 | Outpatient (CLI) | payer OTHER ==
[2020-09-14 13:59] LABS: SPECIMENTYPE,BODY FLUID ASCITES
[2020-09-14 14:00] LABS: APPEARANCE BODY FLUID CLOUDY (CLEAR); COLOR,BODY FLUID ORANGE (LT YELLOW); TOTAL VOLUME,BODY FLUID 4000 mL
[2020-09-14 14:01] LABS: BODY FLUID WBC 92 /cu. mm.
[2020-09-14 14:02] LABS: BODY FLUID RBC 15875 /cu. mm.
[2020-09-14 14:04] LABS: BF LYMPHOCYTE 56 %; BF MONOCYTE 35 %
== END ==
LOC: RAH 07:25
PROVIDERS: ATTEND Family Medicine
DX: R18.8 Other ascites (principal)
CPT/HCPCS: 49083; 87071; 87205; 89051; A4215; P9046; 96365

== ENCOUNTER → 2020-09-21 | Outpatient (CLI) | payer OTHER ==
[2020-09-21 12:56] LABS: APPEARANCE BODY FLUID SLIGHTLY CLOUDY (CLEAR); SPECIMENTYPE,BODY FLUID ASCITES
[2020-09-21 12:57] LABS: COLOR,BODY FLUID ORANGE (LT YELLOW); TOTAL VOLUME,BODY FLUID 4500 mL
[2020-09-21 13:07] LABS: BF LYMPHOCYTE 74 %; BF MESOTHELIAL 5 %; BF MONOCYTE 20 %
[2020-09-21 13:13] LABS: BODY FLUID RBC 386 /cu. mm.; BODY FLUID WBC 84 /cu. mm.
== END | disposition home or self-care (01) ==
LOC: RAH 07:16
PROVIDERS: ATTEND Family Medicine
DX: R18.8 Other ascites (principal)
CPT/HCPCS: 49083; 87071; 87205; 89051; A4215; P9046; 96365

== ENCOUNTER → 2020-09-28 | Outpatient (CLI) | payer OTHER ==
[2020-09-28 16:33] LABS: APPEARANCE BODY FLUID SLIGHTLY CLOUDY (CLEAR); COLOR,BODY FLUID YELLOW (LT YELLOW); SPECIMENTYPE,BODY FLUID ASCITES
[2020-09-28 16:34] LABS: BODY FLUID WBC 60 /cu. mm.; TOTAL VOLUME,BODY FLUID 5000 mL
[2020-09-28 16:35] LABS: BODY FLUID RBC 3850 /cu. mm.
[2020-09-28 16:41] LABS: BF LYMPHOCYTE 94 %; BF MESOTHELIAL 4 %
== END | disposition home or self-care (01) ==
LOC: RAH 07:26
PROVIDERS: ATTEND Family Medicine
DX: R18.8 Other ascites (principal)
CPT/HCPCS: 49083; 87071; 87205; 89051; A4215; P9046; 96365

== ENCOUNTER → 2020-10-01 | Outpatient (CLI) | payer OTHER ==
[~2020-10-01] MED LIST changes: -ALBUMIN (HUMAN) 25% 200 ML IV SCH; +IOHEXOL 350 MG/ML 100ML INFUS..BTL IV ONE
== END | disposition home or self-care (01) ==
LOC: RAH 07:32
PROVIDERS: ATTEND Family Medicine
DX: C22.0 Liver cell carcinoma (principal); J98.11 Atelectasis; R18.8 Other ascites; J90 Pleural effusion, not elsewhere classified; R16.0 Hepatomegaly, not elsewhere classified; R16.1 Splenomegaly, not elsewhere classified
CPT/HCPCS: 74170; Q9967

== ENCOUNTER → 2020-10-05 | Outpatient (CLI) | payer OTHER ==
[~2020-10-05] MED LIST changes: +ALBUMIN (HUMAN) 25% 200 ML IV ONE; -IOHEXOL 350 MG/ML 100ML INFUS..BTL IV ONE
[2020-10-05 12:19] LABS: APPEARANCE BODY FLUID CLOUDY (CLEAR); COLOR,BODY FLUID ORANGE (LT YELLOW); SPECIMENTYPE,BODY FLUID ASCITES; TOTAL VOLUME,BODY FLUID 5400 mL
[2020-10-05 12:20] LABS: BODY FLUID RBC 6250 /cu. mm.; BODY FLUID WBC 42 /cu. mm.
[2020-10-05 12:32] LABS: BF LYMPHOCYTE 64 %; BF MESOTHELIAL 12 %; BF MONOCYTE 23 %
== END | disposition home or self-care (01) ==
LOC: RAH 07:29
PROVIDERS: ATTEND Family Medicine
DX: R18.8 Other ascites (principal); K74.60 Unspecified cirrhosis of liver; D61.818 Other pancytopenia; K76.6 Portal hypertension; Z83.3 Family history of diabetes mellitus; Z80.3 Family history of malignant neoplasm of breast; Z79.899 Other long term (current) drug therapy; Z98.890 Other specified postprocedural states
CPT/HCPCS: 49083; 87071; 87077; 87186; 87205; 89051; A4215; P9046; 96365

== ENCOUNTER → 2020-10-12 | Outpatient (CLI) | payer OTHER ==
[~2020-10-12] MED LIST changes: -ALBUMIN (HUMAN) 25% 200 ML IV ONE; +ALBUMIN (HUMAN) 25% 200 ML IV SCH
[2020-10-12 08:33] LABS: INR 1.3 (0.85-1.15); PROTHROMBIN TIME 13.8 SEC (9.6-11.6)
[2020-10-12 15:53] LABS: APPEARANCE BODY FLUID CLOUDY (CLEAR); BODY FLUID RBC 7850 /cu. mm.; BODY FLUID WBC 50 /cu. mm.; COLOR,BODY FLUID RED (LT YELLOW); SPECIMENTYPE,BODY FLUID ASCITES; TOTAL VOLUME,BODY FLUID 4900 mL
[2020-10-12 16:00] LABS: BF LYMPHOCYTE 73 %; BF MESOTHELIAL 8 %; BF MONOCYTE 7 %
== END | disposition home or self-care (01) ==
LOC: RAH 07:26
PROVIDERS: ATTEND Family Medicine
DX: R18.8 Other ascites (principal); K74.60 Unspecified cirrhosis of liver; D61.818 Other pancytopenia; K76.6 Portal hypertension; Z83.3 Family history of diabetes mellitus; Z80.3 Family history of malignant neoplasm of breast; Z98.890 Other specified postprocedural states; Z79.899 Other long term (current) drug therapy
CPT/HCPCS: 36415; 49083; 85610; 87071; 87205; 89051; A4215; P9046; 96365

== ENCOUNTER → 2020-10-22 | Outpatient (CLI) | payer OTHER ==
[~2020-10-22] MED LIST changes: -ALBUMIN (HUMAN) 25% 200 ML IV SCH
[2020-10-22] MEDS: ALBUMIN (HUMAN) 25% 200 ML IV SCH ×2 (12:52→12:53)
[2020-10-22 13:49] LABS: APPEARANCE BODY FLUID CLOUDY (CLEAR); BODY FLUID WBC 84 /cu. mm.; COLOR,BODY FLUID YELLOW (LT YELLOW); SPECIMENTYPE,BODY FLUID ASCITES; TOTAL VOLUME,BODY FLUID 6400 mL
[2020-10-22 13:50] LABS: BODY FLUID RBC 383 /cu. mm.
[2020-10-22 14:14] LABS: BF LYMPHOCYTE 50 %; BF MESOTHELIAL 19 %; BF MONOCYTE 29 %
== END | disposition home or self-care (01) ==
LOC: RAH 07:52
PROVIDERS: ATTEND Family Medicine
DX: R18.8 Other ascites (principal); K74.60 Unspecified cirrhosis of liver; D61.818 Other pancytopenia; K76.6 Portal hypertension; Z83.3 Family history of diabetes mellitus; Z80.3 Family history of malignant neoplasm of breast; Z98.890 Other specified postprocedural states; Z79.890 Hormone replacement therapy
CPT/HCPCS: 49083; 87071; 87205; 89051; A4215

== ENCOUNTER → 2020-10-29 | Outpatient (CLI) | payer OTHER ==
[~2020-10-29] MED LIST changes: +ALBUMIN (HUMAN) 25% 200 ML IV SCH
[2020-10-29 12:11] LABS: APPEARANCE BODY FLUID CLOUDY (CLEAR); COLOR,BODY FLUID ORANGE (LT YELLOW); SPECIMENTYPE,BODY FLUID ASCITES
[2020-10-29 12:12] LABS: BODY FLUID RBC 7100 /cu. mm.; BODY FLUID WBC 60 /cu. mm.; TOTAL VOLUME,BODY FLUID 5200 mL
[2020-10-29 12:30] LABS: BF LYMPHOCYTE 56 %; BF MESOTHELIAL 9 %; BF MONOCYTE 33 %
== END | disposition home or self-care (01) ==
LOC: RAH 07:27
PROVIDERS: ATTEND Family Medicine
DX: R18.8 Other ascites (principal); K74.60 Unspecified cirrhosis of liver; D61.818 Other pancytopenia; K76.6 Portal hypertension; Z83.3 Family history of diabetes mellitus; Z80.3 Family history of malignant neoplasm of breast; Z79.899 Other long term (current) drug therapy; Z98.890 Other specified postprocedural states
CPT/HCPCS: 49083; 87071; 87205; 89051; A4215; P9046; 96365

== ENCOUNTER → 2020-11-05 | Outpatient (CLI) | payer OTHER ==
[2020-11-05 13:04] LABS: SPECIMENTYPE,BODY FLUID ASCITES
[2020-11-05 13:05] LABS: APPEARANCE BODY FLUID CLOUDY (CLEAR); BODY FLUID RBC 11375 /cu. mm.; BODY FLUID WBC 62 /cu. mm.; COLOR,BODY FLUID RED (LT YELLOW); TOTAL VOLUME,BODY FLUID 5000 mL
[2020-11-05 13:26] LABS: BF LYMPHOCYTE 57 %; BF MESOTHELIAL 19 %; BF MONOCYTE 22 %
== END | disposition home or self-care (01) ==
LOC: RAH 07:24
PROVIDERS: ATTEND Family Medicine
DX: R18.8 Other ascites (principal); K74.60 Unspecified cirrhosis of liver; D61.818 Other pancytopenia; K76.6 Portal hypertension; Z83.3 Family history of diabetes mellitus; Z80.3 Family history of malignant neoplasm of breast; Z79.899 Other long term (current) drug therapy; Z98.890 Other specified postprocedural states
CPT/HCPCS: 49083; 87071; 87205; 89051; A4215; P9046; 96365; C1729

== ENCOUNTER → 2020-11-12 | Outpatient (CLI) | payer OTHER ==
[2020-11-12 18:24] LABS: APPEARANCE BODY FLUID CLOUDY (CLEAR); COLOR,BODY FLUID PINK (LT YELLOW); SPECIMENTYPE,BODY FLUID ASCITES; TOTAL VOLUME,BODY FLUID 5400 mL
[2020-11-12 18:25] LABS: BODY FLUID RBC 8156 /cu. mm.; BODY FLUID WBC 22 /cu. mm.
[2020-11-12 18:56] LABS: BF LYMPHOCYTE 73 %; BF MESOTHELIAL 22 %; BF MONOCYTE 2 %
== END | disposition home or self-care (01) ==
LOC: RAH 07:39
PROVIDERS: ATTEND Family Medicine
DX: R18.8 Other ascites (principal); K74.60 Unspecified cirrhosis of liver; D61.818 Other pancytopenia; K76.6 Portal hypertension; Z83.3 Family history of diabetes mellitus; Z80.3 Family history of malignant neoplasm of breast; Z79.899 Other long term (current) drug therapy; Z98.890 Other specified postprocedural states
CPT/HCPCS: 49083; 87071; 87205; 89051; C1729; P9046; 96365

== ENCOUNTER → 2020-11-19 | Outpatient (CLI) | payer OTHER ==
[2020-11-19 08:52] LABS: INR 1.24 (0.85-1.15); PROTHROMBIN TIME 13.3 SEC (9.6-11.6)
[2020-11-19 08:53] LABS: PARTIAL THROMBOPLASTIN TIME 30.8 SEC (26.3-35.5)
[2020-11-19 13:37] LABS: APPEARANCE BODY FLUID CLOUDY (CLEAR); COLOR,BODY FLUID ORANGE (LT YELLOW); SPECIMENTYPE,BODY FLUID ASCITES; TOTAL VOLUME,BODY FLUID 5200 mL
[2020-11-19 13:38] LABS: BODY FLUID RBC 9100 /cu. mm.; BODY FLUID WBC 68 /cu. mm.
[2020-11-19 14:06] LABS: BF LYMPHOCYTE 66 %; BF MESOTHELIAL 7 %; BF MONOCYTE 24 %
== END | disposition home or self-care (01) ==
LOC: RAH 07:43
PROVIDERS: ATTEND Family Medicine
DX: R18.8 Other ascites (principal); K74.60 Unspecified cirrhosis of liver; K76.6 Portal hypertension; Z83.3 Family history of diabetes mellitus; Z80.3 Family history of malignant neoplasm of breast; Z79.899 Other long term (current) drug therapy; Z98.890 Other specified postprocedural states; Z79.01 Long term (current) use of anticoagulants
CPT/HCPCS: 36415; 49083; 85610; 85730; 87071; 87205; 89051; C1729; P9046; 96365

== ENCOUNTER → 2020-11-26 | Outpatient (CLI) | payer OTHER ==
[~2020-11-26] MED LIST changes: +ALBUMIN (HUMAN) 25% 200 ML IV ONE
[2020-11-26 09:29] LABS: APPEARANCE BODY FLUID CLOUDY (CLEAR); COLOR,BODY FLUID RED (LT YELLOW); SPECIMENTYPE,BODY FLUID ASCITES; TOTAL VOLUME,BODY FLUID 6100 mL
[2020-11-26 09:30] LABS: BODY FLUID RBC 14225 /cu. mm.; BODY FLUID WBC 84 /cu. mm.
[2020-11-26 09:56] LABS: BF EOSINOPHIL 1 %; BF LYMPHOCYTE 53 %; BF MESOTHELIAL 11 %; BF MONOCYTE 31 %
== END | disposition home or self-care (01) ==
LOC: RAH 07:29
PROVIDERS: ATTEND Family Medicine
DX: R18.8 Other ascites (principal); K74.60 Unspecified cirrhosis of liver; K76.6 Portal hypertension; Z83.3 Family history of diabetes mellitus; Z80.3 Family history of malignant neoplasm of breast; Z79.899 Other long term (current) drug therapy; Z98.890 Other specified postprocedural states; Z79.01 Long term (current) use of anticoagulants
CPT/HCPCS: 49083; 87071; 87205; 89051; C1729; P9046

== ENCOUNTER → 2020-12-03 | Outpatient (CLI) | payer OTHER ==
[~2020-12-03] MED LIST changes: -ALBUMIN (HUMAN) 25% 200 ML IV ONE
== END | disposition home or self-care (01) ==
LOC: RAH 07:19
PROVIDERS: ATTEND Family Medicine
DX: R18.8 Other ascites (principal); K74.60 Unspecified cirrhosis of liver; K76.6 Portal hypertension; Z83.3 Family history of diabetes mellitus; Z80.3 Family history of malignant neoplasm of breast; Z79.899 Other long term (current) drug therapy; Z98.890 Other specified postprocedural states; Z79.01 Long term (current) use of anticoagulants
CPT/HCPCS: 49083; C1729

== ENCOUNTER → 2021-01-04 | Outpatient (CLI) | payer OTHER ==
[~2021-01-04] MED LIST changes: +LACT1CAP78 PO; +OMEG-148 PO
[2021-01-04 11:49] LABS: APPEARANCE BODY FLUID BLOODY (CLEAR); COLOR,BODY FLUID RED (LT YELLOW); SPECIMENTYPE,BODY FLUID ASCITES
[2021-01-04 11:50] LABS: BODY FLUID RBC 395000 /cu. mm.; BODY FLUID WBC 0 /cu. mm.
[2021-01-04 11:51] LABS: TOTAL VOLUME,BODY FLUID 6900 mL
== END ==
LOC: RAH 07:27
PROVIDERS: ATTEND Family Medicine
DX: R18.8 Other ascites (principal); K74.60 Unspecified cirrhosis of liver; Z79.899 Other long term (current) drug therapy; Z79.01 Long term (current) use of anticoagulants
CPT/HCPCS: 49083; 87071; 87077; 87186; 87205; 89051; 96365; C1729; P9046

== ENCOUNTER 2021-01-15 08:15 | Day surgery (SDC) | payer OTHER ==
[~2021-01-15] VITALS: Ht 177.8 cm; Wt 68.9 kg
[~2021-01-15 08:15] MED LIST changes: +0.9%NACL 1000ML 1,000 ML IV ONE; -ALBUMIN (HUMAN) 25% 200 ML IV SCH; -FURO40TA5 PO; -MULT-1203 PO; -PANT40TA55 PO; -SPIR50TA5 PO
[2021-01-15 10:02] VITALS: BP 96/59
[2021-01-15] MEDS ORDERED: PROPOFOL 10 MG/ML 20ML VIAL IV ONE (12:01)
[2021-01-15 12:15] VITALS: BP 88/55
[2021-01-15 12:20] VITALS: BP 87/50
== END 2021-01-15 13:00 | disposition home or self-care (01) ==
LOC: DAH 08:15
PROVIDERS: ATTEND Internal Medicine Gastroenterology
DX: D50.9 Iron deficiency anemia, unspecified (principal); I85.10 Secondary esophageal varices without bleeding; Z20.822 Contact with and (suspected) exposure to COVID-19; K76.6 Portal hypertension; K31.89 Other diseases of stomach and duodenum; K70.31 Alcoholic cirrhosis of liver with ascites; E55.9 Vitamin D deficiency, unspecified; K40.90 Unilateral inguinal hernia, without obstruction or gangrene, not specified as recurrent; G93.49 Other encephalopathy; Z86.010 Personal history of colon polyps; Z79.899 Other long term (current) drug therapy; Z98.890 Other specified postprocedural states
CPT/HCPCS: 43239; 87635; 88305; 88342; A4215 ×2; A4221; A4222; A4223; A4606; A4620; A4663; C9803; J2704; J7030

== ENCOUNTER → 2021-01-18 | Outpatient (CLI) | payer OTHER ==
[~2021-01-18] MED LIST changes: -0.9%NACL 1000ML 1,000 ML IV ONE; +ALBUMIN (HUMAN) 25% 200 ML IV SCH
[2021-01-18 16:51] LABS: APPEARANCE BODY FLUID CLOUDY (CLEAR); BODY FLUID WBC 23 /cu. mm.; COLOR,BODY FLUID AMBER (LT YELLOW); SPECIMENTYPE,BODY FLUID ASCITES; TOTAL VOLUME,BODY FLUID 5000 mL
[2021-01-18 16:55] LABS: BODY FLUID RBC 6325 /cu. mm.
[2021-01-18 16:58] LABS: BF LYMPHOCYTE 81 %; BF MESOTHELIAL 6 %; BF MONOCYTE 8 %
== END | disposition home or self-care (01) ==
LOC: RAH 07:25
PROVIDERS: ATTEND Family Medicine
DX: R18.8 Other ascites (principal); K74.60 Unspecified cirrhosis of liver
CPT/HCPCS: 49083; 87071; 87205; 89051; C1729; P9046; 96365

== ENCOUNTER → 2021-03-15 | Outpatient (CLI) | payer OTHER ==
[2021-03-15 13:48] LABS: BF LYMPHOCYTE 68 %; BF MONOCYTE 28 %
[2021-03-15 13:50] LABS: APPEARANCE BODY FLUID CLOUDY (CLEAR); COLOR,BODY FLUID PINK (LT YELLOW); SPECIMENTYPE,BODY FLUID ASCITES; TOTAL VOLUME,BODY FLUID 5000 mL
[2021-03-15 13:51] LABS: BODY FLUID RBC 5975 /cu. mm.; BODY FLUID WBC 67 /cu. mm.
== END | disposition home or self-care (01) ==
LOC: RAH 07:27
PROVIDERS: ATTEND Family Medicine
DX: R18.8 Other ascites (principal); K74.60 Unspecified cirrhosis of liver; Z98.890 Other specified postprocedural states; Z83.3 Family history of diabetes mellitus; Z80.3 Family history of malignant neoplasm of breast; Z79.899 Other long term (current) drug therapy
CPT/HCPCS: 49083; 87071; 87205; 89051; C1729; P9046; 96365

== ENCOUNTER → 2021-03-22 | Outpatient (CLI) | payer OTHER ==
[2021-03-22 10:50] LABS: APPEARANCE BODY FLUID TURBID (CLEAR); COLOR,BODY FLUID RED (LT YELLOW); SPECIMENTYPE,BODY FLUID ASCITES
[2021-03-22 10:51] LABS: BODY FLUID RBC 32080 /cu. mm.; BODY FLUID WBC 40 /cu. mm.; TOTAL VOLUME,BODY FLUID 6000 mL
[2021-03-22 11:23] LABS: BF LYMPHOCYTE 54 %; BF MESOTHELIAL 44 %
== END | disposition home or self-care (01) ==
LOC: RAH 07:38
PROVIDERS: ATTEND Family Medicine
DX: K70.31 Alcoholic cirrhosis of liver with ascites (principal); Z79.01 Long term (current) use of anticoagulants; Z79.899 Other long term (current) drug therapy
CPT/HCPCS: 49083; 87071; 87205; 89051; 96365; C1729; P9046

== ENCOUNTER → 2021-03-29 | Outpatient (CLI) | payer OTHER ==
[2021-03-29 13:59] LABS: APPEARANCE BODY FLUID SLIGHTLY CLOUDY (CLEAR); SPECIMENTYPE,BODY FLUID ASCITES
[2021-03-29 14:00] LABS: BODY FLUID WBC 75 /cu. mm.; COLOR,BODY FLUID ORANGE (LT YELLOW); TOTAL VOLUME,BODY FLUID 5000 mL
[2021-03-29 14:01] LABS: BODY FLUID RBC 7675 /cu. mm.
[2021-03-29 14:15] LABS: BF LYMPHOCYTE 45 %; BF MESOTHELIAL 35 %; BF MONOCYTE 20 %
== END | disposition home or self-care (01) ==
LOC: RAH 07:23
PROVIDERS: ATTEND Family Medicine
DX: R18.8 Other ascites (principal)
CPT/HCPCS: 49083; 87071; 87205; 89051; 96365; C1729; P9046

== ENCOUNTER → 2021-04-04 | Outpatient (CLI) | payer OTHER ==
[2021-04-04 08:32] LABS: INR 1.28 (0.85-1.15); PROTHROMBIN TIME 13.6 SEC (9.6-11.6)
[2021-04-04 08:33] LABS: PARTIAL THROMBOPLASTIN TIME 34.1 SEC (26.3-35.5)
[2021-04-04 14:52] LABS: APPEARANCE BODY FLUID CLOUDY (CLEAR); BODY FLUID WBC 76 /cu. mm.; COLOR,BODY FLUID PINK (LT YELLOW); SPECIMENTYPE,BODY FLUID ASCITES; TOTAL VOLUME,BODY FLUID 5000 mL
[2021-04-04 14:53] LABS: BODY FLUID RBC 7800 /cu. mm.
[2021-04-04 14:58] LABS: BF LYMPHOCYTE 77 %; BF MONOCYTE 17 %
== END | disposition home or self-care (01) ==
LOC: RAH 07:35
PROVIDERS: ATTEND Family Medicine
DX: R18.8 Other ascites (principal); K74.60 Unspecified cirrhosis of liver; K76.6 Portal hypertension; D69.6 Thrombocytopenia, unspecified; Z86.010 Personal history of colon polyps; Z98.890 Other specified postprocedural states; Z79.01 Long term (current) use of anticoagulants; Z80.3 Family history of malignant neoplasm of breast; Z83.3 Family history of diabetes mellitus
CPT/HCPCS: 36415; 49083; 85610; 85730; 87071; 87205; 89051; C1729; P9046; 96365

== ENCOUNTER → 2021-04-11 | Outpatient (CLI) | payer OTHER ==
[~2021-04-11] MED LIST changes: +LIDOCAINE HCL 1% 20 ML VIAL ONE
[2021-04-11 13:22] LABS: APPEARANCE BODY FLUID TURBID (CLEAR); COLOR,BODY FLUID ORANGE (LT YELLOW); SPECIMENTYPE,BODY FLUID ASCITES; TOTAL VOLUME,BODY FLUID 6000 mL
[2021-04-11 13:23] LABS: BODY FLUID RBC 19280 /cu. mm.; BODY FLUID WBC 30 /cu. mm.
[2021-04-11 13:45] LABS: BF EOSINOPHIL 1 %; BF LYMPHOCYTE 90 %; BF MESOTHELIAL 8 %
== END | disposition home or self-care (01) ==
LOC: RAH 07:27
PROVIDERS: ATTEND Family Medicine
DX: R18.8 Other ascites (principal); K74.60 Unspecified cirrhosis of liver; K76.6 Portal hypertension; D69.6 Thrombocytopenia, unspecified; Z86.010 Personal history of colon polyps; Z98.890 Other specified postprocedural states; Z80.3 Family history of malignant neoplasm of breast; Z83.3 Family history of diabetes mellitus; Z79.01 Long term (current) use of anticoagulants
CPT/HCPCS: 49083; 87071; 87205; 89051; C1729; P9046; 96365

== ENCOUNTER → 2021-05-02 | Outpatient (CLI) | payer OTHER ==
[~2021-05-02] MED LIST changes: -LIDOCAINE HCL 1% 20 ML VIAL ONE
[2021-05-02 13:35] LABS: APPEARANCE BODY FLUID CLOUDY (CLEAR); COLOR,BODY FLUID RED (LT YELLOW); SPECIMENTYPE,BODY FLUID ASCITES
[2021-05-02 13:36] LABS: BODY FLUID RBC 27075 /cu. mm.; BODY FLUID WBC 47 /cu. mm.
[2021-05-02 13:38] LABS: BF LYMPHOCYTE 62 %; BF MESOTHELIAL 27 %; BF MONOCYTE 10 %
[2021-05-02 13:43] LABS: TOTAL VOLUME,BODY FLUID 3800 mL
== END | disposition home or self-care (01) ==
LOC: RAH 07:27
PROVIDERS: ATTEND Family Medicine
DX: K70.31 Alcoholic cirrhosis of liver with ascites (principal); K76.6 Portal hypertension; D69.6 Thrombocytopenia, unspecified; Z86.010 Personal history of colon polyps; Z98.890 Other specified postprocedural states; Z80.3 Family history of malignant neoplasm of breast; Z79.01 Long term (current) use of anticoagulants; Z83.3 Family history of diabetes mellitus
CPT/HCPCS: 49083; 87071; 87205; 89051; C1729; P9046; 96365

== ENCOUNTER → 2021-05-09 | Outpatient (CLI) | payer OTHER ==
[~2021-05-09] MED LIST changes: +LIDOCAINE HCL MPF 1% 5ML VIAL ONE
[2021-05-09 12:26] LABS: SPECIMENTYPE,BODY FLUID ASCITES
[2021-05-09 12:27] LABS: APPEARANCE BODY FLUID CLOUDY (CLEAR); BODY FLUID RBC 12200 /cu. mm.; BODY FLUID WBC 54 /cu. mm.; COLOR,BODY FLUID RED (LT YELLOW)
[2021-05-09 12:28] LABS: TOTAL VOLUME,BODY FLUID 5000 mL
[2021-05-09 12:34] LABS: BF EOSINOPHIL 1 %; BF LYMPHOCYTE 37 %; BF MESOTHELIAL 41 %; BF MONOCYTE 12 %
== END | disposition home or self-care (01) ==
LOC: RAH 07:26
PROVIDERS: ATTEND Family Medicine
DX: K70.31 Alcoholic cirrhosis of liver with ascites (principal); K76.6 Portal hypertension; D69.6 Thrombocytopenia, unspecified; Z86.010 Personal history of colon polyps; Z98.890 Other specified postprocedural states; Z83.3 Family history of diabetes mellitus; Z79.01 Long term (current) use of anticoagulants; Z80.3 Family history of malignant neoplasm of breast
CPT/HCPCS: 49083; 87071; 87205; 89051; C1729; J3490 ×2; P9046; 96365

== ENCOUNTER → 2021-05-30 | Outpatient (CLI) | payer OTHER ==
[2021-05-30 16:06] LABS: APPEARANCE BODY FLUID CLOUDY (CLEAR); BODY FLUID RBC 11700 /cu. mm.; BODY FLUID WBC 9 /cu. mm.; COLOR,BODY FLUID ORANGE (LT YELLOW); SPECIMENTYPE,BODY FLUID ASCITES; TOTAL VOLUME,BODY FLUID 5000 mL
[2021-05-30 16:12] LABS: BF LYMPHOCYTE 70 %; BF MONOCYTE 4 %
== END | disposition home or self-care (01) ==
LOC: RAH 07:24
PROVIDERS: ATTEND Family Medicine
DX: K70.31 Alcoholic cirrhosis of liver with ascites (principal); K76.6 Portal hypertension; D64.9 Anemia, unspecified; Z86.010 Personal history of colon polyps; Z98.890 Other specified postprocedural states; Z83.3 Family history of diabetes mellitus; Z80.3 Family history of malignant neoplasm of breast; Z79.01 Long term (current) use of anticoagulants
CPT/HCPCS: 49083; 87071; 87205; 89051; C1729; J3490; P9046; 96365

== ENCOUNTER → 2021-06-06 | Outpatient (CLI) | payer OTHER ==
[2021-06-06 13:03] LABS: SPECIMENTYPE,BODY FLUID ASCITES
[2021-06-06 13:04] LABS: APPEARANCE BODY FLUID TURBID (CLEAR); BODY FLUID RBC 116250 /cu. mm.; BODY FLUID WBC 85 /cu. mm.; COLOR,BODY FLUID RED (LT YELLOW); TOTAL VOLUME,BODY FLUID 5000 mL
[2021-06-06 13:39] LABS: BF LYMPHOCYTE 58 %; BF MESOTHELIAL 34 %; BF MONOCYTE 7 %
== END | disposition home or self-care (01) ==
LOC: RAH 07:43 → DAH 07:43
PROVIDERS: ATTEND Family Medicine
DX: K70.31 Alcoholic cirrhosis of liver with ascites (principal); K76.6 Portal hypertension; D64.9 Anemia, unspecified; Z86.010 Personal history of colon polyps; Z98.890 Other specified postprocedural states; Z83.3 Family history of diabetes mellitus; Z80.3 Family history of malignant neoplasm of breast; Z79.01 Long term (current) use of anticoagulants
CPT/HCPCS: 49083; 87071; 87205; 89051; C1729; P9046; 96365; J3490

== ENCOUNTER → 2021-06-13 | Outpatient (CLI) | payer OTHER ==
[~2021-06-13] MED LIST changes: +LIDOCAINE HCL 1% 20 ML VIAL ONE; -LIDOCAINE HCL MPF 1% 5ML VIAL ONE; -MAGN500C15 PO; +MAGN500C4 PO
[2021-06-13 12:04] LABS: APPEARANCE BODY FLUID CLOUDY (CLEAR); BODY FLUID RBC 82080 /cu. mm.; BODY FLUID WBC 60 /cu. mm.; COLOR,BODY FLUID RED (LT YELLOW); SPECIMENTYPE,BODY FLUID ASCITES; TOTAL VOLUME,BODY FLUID 5000 mL
[2021-06-13 13:08] LABS: BF EOSINOPHIL 1 %; BF LYMPHOCYTE 58 %; BF MESOTHELIAL 31 %
== END | disposition home or self-care (01) ==
LOC: RAH 07:26
PROVIDERS: ATTEND Family Medicine
DX: K70.31 Alcoholic cirrhosis of liver with ascites (principal); K76.6 Portal hypertension; D64.9 Anemia, unspecified; Z86.010 Personal history of colon polyps; Z98.890 Other specified postprocedural states; Z83.3 Family history of diabetes mellitus; Z80.3 Family history of malignant neoplasm of breast; Z79.01 Long term (current) use of anticoagulants
CPT/HCPCS: 49083; 87071; 87205; 89051; C1729; P9046; 96365

== ENCOUNTER → 2021-06-20 | Outpatient (CLI) | payer OTHER ==
[~2021-06-20] MED LIST changes: +ALBUMIN (HUMAN) 25% 200 ML IV ONE; -ALBUMIN (HUMAN) 25% 200 ML IV SCH; -LIDOCAINE HCL 1% 20 ML VIAL ONE
[2021-06-20 09:10] LABS: INR 1.35 (0.85-1.15); PROTHROMBIN TIME 14.3 SEC (9.6-11.6)
[2021-06-20 09:12] LABS: PARTIAL THROMBOPLASTIN TIME 37.8 SEC (26.3-35.5)
[2021-06-20 14:13] LABS: BF BASOPHIL 1 %; BF LYMPHOCYTE 37 %; BF MESOTHELIAL 34 %; BF MONOCYTE 19 %
[2021-06-20 14:25] LABS: APPEARANCE BODY FLUID CLOUDY (CLEAR); SPECIMENTYPE,BODY FLUID ASCITES
[2021-06-20 14:26] LABS: BODY FLUID RBC 28775 /cu. mm.; BODY FLUID WBC 59 /cu. mm.; COLOR,BODY FLUID RED (LT YELLOW); TOTAL VOLUME,BODY FLUID 5000 mL
== END | disposition home or self-care (01) ==
LOC: RAH 07:31
PROVIDERS: ATTEND Family Medicine
DX: R18.8 Other ascites (principal); K74.60 Unspecified cirrhosis of liver; K76.6 Portal hypertension; D64.9 Anemia, unspecified; Z86.010 Personal history of colon polyps; Z98.890 Other specified postprocedural states; Z83.3 Family history of diabetes mellitus; Z80.1 Family history of malignant neoplasm of trachea, bronchus and lung; Z79.899 Other long term (current) drug therapy; Z79.01 Long term (current) use of anticoagulants
CPT/HCPCS: 36415; 49083; 85610; 85730; 87071; 87205; 89051; C1729; P9046; 96365

== ENCOUNTER → 2021-06-27 | Outpatient (CLI) | payer OTHER ==
[~2021-06-27] MED LIST changes: -ALBUMIN (HUMAN) 25% 200 ML IV ONE; +ALBUMIN (HUMAN) 25% 200 ML IV SCH; +LIDOCAINE HCL MPF 1% 5ML VIAL ONE
[2021-06-27 09:51] LABS: BASOPHILS % (AUTO) 0.6 % (0.0-5.0); EOSINOPHILS % (AUTO) 3.4 % (0.0-8.0); HEMATOCRIT 26.5 % (42-54); LYMPHOCYTES % (AUTO) 8.4 % (21.0-51.0); MEAN CORPUSCULAR HEMOGLOBIN 28.1 pg (27.0-33.0); MEAN CORPUSCULAR HGB CONC 31.3 g/dL (32.0-36.0); MEAN CORPUSCULAR VOLUME 89.8 fL (79-99); MONOCYTES % (AUTO) 21.8 % (3.0-13.0); NEUTROPHILS % (AUTO) 65.2 % (40.0-77.0); PLATELET COUNT (AUTO) 37 K/uL (130-400); RED BLOOD CELL COUNT(AUTO) 2.95 MIL/uL (4.50-6.20); RED CELL DISTRIBUTION WIDTH 17.6 % (11.0-15.5); WHITE BLOOD COUNT (AUTO) 1.8 K/uL (4.8-10.8)
[2021-06-27 09:59] LABS: INR 1.33 (0.85-1.15); PROTHROMBIN TIME 14.1 SEC (9.6-11.6)
[2021-06-27 10:01] LABS: ALBUMIN 3.8 g/dL (3.5-5.0); BILIRUBIN,TOTAL 1.7 mg/dL (0.2-1.0); CREATININE 0.7 mg/dL (0.5-1.5); POTASSIUM 3.8 mmol/L (3.5-5.1); TOTAL PROTEIN, SERUM 6.7 g/dL (6.0-8.3)
[2021-06-27 12:38] LABS: BF LYMPHOCYTE 66 %; BF MESOTHELIAL 24 %; BF MONOCYTE 8 %
[2021-06-27 12:39] LABS: SPECIMENTYPE,BODY FLUID ASCITES
[2021-06-27 12:40] LABS: APPEARANCE BODY FLUID CLOUDY (CLEAR); BODY FLUID RBC 10450 /cu. mm.; BODY FLUID WBC 51 /cu. mm.; COLOR,BODY FLUID RED (LT YELLOW); TOTAL VOLUME,BODY FLUID 5000 mL
== END | disposition home or self-care (01) ==
LOC: RAH 07:40
PROVIDERS: ATTEND Family Medicine
DX: R18.8 Other ascites (principal); K74.60 Unspecified cirrhosis of liver; K76.6 Portal hypertension; D64.9 Anemia, unspecified; Z86.010 Personal history of colon polyps; Z98.890 Other specified postprocedural states; Z83.3 Family history of diabetes mellitus; Z80.1 Family history of malignant neoplasm of trachea, bronchus and lung; Z79.899 Other long term (current) drug therapy; Z79.01 Long term (current) use of anticoagulants
CPT/HCPCS: 36415; 49083; 80053; 85025; 85610; 87071; 87205; 89051; C1729; J3490; P9046

== ENCOUNTER → 2021-07-04 | Outpatient (CLI) | payer OTHER ==
[~2021-07-04] MED LIST changes: +LIDOCAINE HCL 1% 20 ML VIAL ONE; -LIDOCAINE HCL MPF 1% 5ML VIAL ONE
[2021-07-04 12:59] LABS: APPEARANCE BODY FLUID CLOUDY (CLEAR); COLOR,BODY FLUID ORANGE (LT YELLOW); SPECIMENTYPE,BODY FLUID ASCITES; TOTAL VOLUME,BODY FLUID 5000 mL
[2021-07-04 13:00] LABS: BODY FLUID RBC 397 /cu. mm.; BODY FLUID WBC 59 /cu. mm.
[2021-07-04 13:44] LABS: BF LYMPHOCYTE 51 %; BF MESOTHELIAL 27 %; BF MONOCYTE 15 %
== END | disposition home or self-care (01) ==
LOC: RAH 07:36
PROVIDERS: ATTEND Family Medicine
DX: R18.8 Other ascites (principal); K74.60 Unspecified cirrhosis of liver; K76.6 Portal hypertension; D64.9 Anemia, unspecified; Z86.010 Personal history of colon polyps; Z98.890 Other specified postprocedural states; Z83.3 Family history of diabetes mellitus; Z80.1 Family history of malignant neoplasm of trachea, bronchus and lung; Z79.01 Long term (current) use of anticoagulants; Z79.899 Other long term (current) drug therapy
CPT/HCPCS: 49083; 87071; 87205; 89051; C1729; P9046; 96365

== ENCOUNTER → 2021-08-01 | Outpatient (CLI) | payer OTHER ==
[~2021-08-01] MED LIST changes: -LIDOCAINE HCL 1% 20 ML VIAL ONE; +LIDOCAINE HCL MPF 1% 5ML VIAL ONE
[2021-08-01 09:08] LABS: INR 1.3 (0.85-1.15); PROTHROMBIN TIME 13.8 SEC (9.6-11.6)
[2021-08-01 09:09] LABS: PARTIAL THROMBOPLASTIN TIME 32.5 SEC (26.3-35.5)
[2021-08-01 13:21] LABS: APPEARANCE BODY FLUID TURBID (CLEAR); COLOR,BODY FLUID ORANGE (LT YELLOW); SPECIMENTYPE,BODY FLUID ASCITES; TOTAL VOLUME,BODY FLUID 5000 mL
[2021-08-01 13:22] LABS: BODY FLUID RBC 6100 /cu. mm.; BODY FLUID WBC 48 /cu. mm.
[2021-08-01 13:55] LABS: BF LYMPHOCYTE 63 %; BF MESOTHELIAL 17 %; BF MONOCYTE 17 %
== END | disposition home or self-care (01) ==
LOC: RAH 07:34
PROVIDERS: ATTEND Family Medicine
DX: R18.8 Other ascites (principal); K74.60 Unspecified cirrhosis of liver; K76.6 Portal hypertension; D64.9 Anemia, unspecified; Z79.01 Long term (current) use of anticoagulants; Z79.899 Other long term (current) drug therapy; Z98.890 Other specified postprocedural states; Z80.1 Family history of malignant neoplasm of trachea, bronchus and lung; Z80.3 Family history of malignant neoplasm of breast
CPT/HCPCS: 36415; 49083; 85610; 85730; 87071; 87205; 89051; C1729; J3490; P9046; 96365

== ENCOUNTER → 2021-08-15 | Outpatient (CLI) | payer OTHER ==
[~2021-08-15] MED LIST changes: -LIDOCAINE HCL MPF 1% 5ML VIAL ONE
[2021-08-15 14:02] LABS: APPEARANCE BODY FLUID SLIGHTLY CLOUDY (CLEAR); BODY FLUID RBC 3400 /cu. mm.; BODY FLUID WBC 43 /cu. mm.; COLOR,BODY FLUID ORANGE (LT YELLOW); SPECIMENTYPE,BODY FLUID ASCITES; TOTAL VOLUME,BODY FLUID 5000 mL
[2021-08-15 14:05] LABS: BF LYMPHOCYTE 39 %; BF MESOTHELIAL 25 %; BF MONOCYTE 31 %
== END | disposition home or self-care (01) ==
LOC: RAH 07:37
PROVIDERS: ATTEND Family Medicine
DX: R18.8 Other ascites (principal); K74.60 Unspecified cirrhosis of liver; K76.6 Portal hypertension; D64.9 Anemia, unspecified; Z80.1 Family history of malignant neoplasm of trachea, bronchus and lung; Z80.3 Family history of malignant neoplasm of breast; Z98.890 Other specified postprocedural states; Z79.01 Long term (current) use of anticoagulants; Z79.899 Other long term (current) drug therapy
CPT/HCPCS: 49083; 87071; 87205; 89051; C1729; P9046

== ENCOUNTER → 2021-08-22 | Outpatient (CLI) | payer OTHER ==
[2021-08-22 16:37] LABS: APPEARANCE BODY FLUID CLOUDY (CLEAR); COLOR,BODY FLUID ORANGE (LT YELLOW); SPECIMENTYPE,BODY FLUID ASCITES
[2021-08-22 16:38] LABS: BODY FLUID RBC 5700 /cu. mm.; TOTAL VOLUME,BODY FLUID 5000 mL
[2021-08-22 16:56] LABS: BODY FLUID WBC 12 /cu. mm.
[2021-08-22 16:58] LABS: BF EOSINOPHIL 1 %; BF LYMPHOCYTE 42 %; BF MONOCYTE 2 %; BF OTHER CELLS 4
== END | disposition home or self-care (01) ==
LOC: RAH 07:32
PROVIDERS: ATTEND Family Medicine
DX: R18.8 Other ascites (principal)
CPT/HCPCS: 49083; 87071; 87205; 89051; C1729; P9046; 96365

== ENCOUNTER → 2021-08-23 | Outpatient (CLI) | payer OTHER ==
[~2021-08-23] MED LIST changes: -ALBUMIN (HUMAN) 25% 200 ML IV SCH; +IOHEXOL-350 75 ML VIAL IV ONE; +LIDOCAINE HCL 1% 20 ML VIAL ONE
== END | disposition home or self-care (01) ==
LOC: RAH 10:00
PROVIDERS: ATTEND Internal Medicine Gastroenterology
DX: C22.9 Malignant neoplasm of liver, not specified as primary or secondary (principal); K70.31 Alcoholic cirrhosis of liver with ascites; J98.11 Atelectasis; J90 Pleural effusion, not elsewhere classified; I86.8 Varicose veins of other specified sites; R16.1 Splenomegaly, not elsewhere classified; Z90.49 Acquired absence of other specified parts of digestive tract; Z98.890 Other specified postprocedural states
CPT/HCPCS: 74170; Q9967

== ENCOUNTER → 2021-08-29 | Outpatient (CLI) | payer OTHER ==
[~2021-08-29] MED LIST changes: +ALBUMIN (HUMAN) 25% 200 ML IV SCH; -IOHEXOL-350 75 ML VIAL IV ONE; -LIDOCAINE HCL 1% 20 ML VIAL ONE; +LIDOCAINE HCL MPF 1% 5ML VIAL ONE
[2021-08-29 16:35] LABS: APPEARANCE BODY FLUID CLOUDY (CLEAR); BODY FLUID WBC 12 /cu. mm.; COLOR,BODY FLUID ORANGE (LT YELLOW); SPECIMENTYPE,BODY FLUID ASCITES; TOTAL VOLUME,BODY FLUID 5000 mL
[2021-08-29 16:36] LABS: BODY FLUID RBC 9920 /cu. mm.
[2021-08-29 19:21] LABS: BF LYMPHOCYTE 60 %; BF MONOCYTE 4 %; BF OTHER CELLS 4
== END | disposition home or self-care (01) ==
LOC: RAH 07:31
PROVIDERS: ATTEND Family Medicine
DX: K70.31 Alcoholic cirrhosis of liver with ascites (principal); J98.11 Atelectasis; J90 Pleural effusion, not elsewhere classified; R16.1 Splenomegaly, not elsewhere classified; Z90.49 Acquired absence of other specified parts of digestive tract; Z98.890 Other specified postprocedural states; Z79.01 Long term (current) use of anticoagulants
CPT/HCPCS: 49083; 87071; 87205; 89051; C1729; J3490; 96365

== ENCOUNTER → 2021-09-12 | Outpatient (CLI) | payer OTHER ==
[2021-09-12 13:08] LABS: APPEARANCE BODY FLUID CLOUDY (CLEAR); BODY FLUID RBC 5200 /cu. mm.; BODY FLUID WBC 59 /cu. mm.; COLOR,BODY FLUID ORANGE (LT YELLOW); SPECIMENTYPE,BODY FLUID ASCITES; TOTAL VOLUME,BODY FLUID 4500 mL
[2021-09-12 13:19] LABS: BF LYMPHOCYTE 71 %; BF MESOTHELIAL 15 %; BF MONOCYTE 14 %
== END | disposition home or self-care (01) ==
LOC: RAH 07:31
PROVIDERS: ATTEND Family Medicine
DX: R18.8 Other ascites (principal); K74.60 Unspecified cirrhosis of liver; K76.6 Portal hypertension; J44.9 Chronic obstructive pulmonary disease, unspecified; D84.81 Immunodeficiency due to conditions classified elsewhere; D63.8 Anemia in other chronic diseases classified elsewhere; Z79.01 Long term (current) use of anticoagulants; Z79.899 Other long term (current) drug therapy; Z98.890 Other specified postprocedural states
CPT/HCPCS: 49083; 87071; 87205; 89051; C1729; P9046; 96365; J3490

== ENCOUNTER → 2021-09-19 | Outpatient (CLI) | payer OTHER ==
[~2021-09-19] MED LIST changes: +ALBUMIN (HUMAN) 25% 200 ML IV ONE; -ALBUMIN (HUMAN) 25% 200 ML IV SCH; -LIDOCAINE HCL MPF 1% 5ML VIAL ONE
[2021-09-19 13:12] LABS: APPEARANCE BODY FLUID TURBID (CLEAR); COLOR,BODY FLUID YELLOW (LT YELLOW); SPECIMENTYPE,BODY FLUID ASCITES; TOTAL VOLUME,BODY FLUID 5000 mL
[2021-09-19 13:23] LABS: BODY FLUID RBC 5250 /cu. mm.; BODY FLUID WBC 65 /cu. mm.
[2021-09-19 14:25] LABS: BF LYMPHOCYTE 51 %; BF MESOTHELIAL 33 %; BF MONOCYTE 14 %
== END | disposition home or self-care (01) ==
LOC: RAH 07:39
PROVIDERS: ATTEND Family Medicine
DX: R18.8 Other ascites (principal); K74.60 Unspecified cirrhosis of liver; J44.9 Chronic obstructive pulmonary disease, unspecified; D63.8 Anemia in other chronic diseases classified elsewhere; K76.6 Portal hypertension; R16.1 Splenomegaly, not elsewhere classified; D84.81 Immunodeficiency due to conditions classified elsewhere; E26.9 Hyperaldosteronism, unspecified; Z98.890 Other specified postprocedural states; Z79.01 Long term (current) use of anticoagulants; Z79.899 Other long term (current) drug therapy
CPT/HCPCS: 49083; 87071; 87205; 89051; C1729; P9046; 96365

== ENCOUNTER → 2021-09-26 | Outpatient (CLI) | payer OTHER ==
[~2021-09-26] MED LIST changes: -ALBUMIN (HUMAN) 25% 200 ML IV ONE; +ALBUMIN (HUMAN) 25% 200 ML IV SCH; +LIDOCAINE HCL 1% MDV 50ML VIAL ONE
[2021-09-26 15:59] LABS: SPECIMENTYPE,BODY FLUID ASCITES
[2021-09-26 16:00] LABS: APPEARANCE BODY FLUID CLEAR (CLEAR); BODY FLUID WBC 35 /cu. mm.; COLOR,BODY FLUID AMBER (LT YELLOW)
[2021-09-26 16:01] LABS: BODY FLUID RBC 5050 /cu. mm.
[2021-09-26 16:20] LABS: TOTAL VOLUME,BODY FLUID 5000 mL
[2021-09-26 16:28] LABS: BF EOSINOPHIL 2 %; BF LYMPHOCYTE 58 %; BF MESOTHELIAL 6 %; BF MONOCYTE 13 %
== END | disposition home or self-care (01) ==
LOC: RAH 07:28
PROVIDERS: ATTEND Family Medicine
DX: R18.8 Other ascites (principal); K74.60 Unspecified cirrhosis of liver; J44.9 Chronic obstructive pulmonary disease, unspecified; Z79.01 Long term (current) use of anticoagulants; Z79.899 Other long term (current) drug therapy; Z90.49 Acquired absence of other specified parts of digestive tract
CPT/HCPCS: 49083; 87071; 87205; 89051; 96365; C1729; J3490; P9046

== ENCOUNTER → 2021-10-03 | Outpatient (CLI) | payer OTHER ==
[~2021-10-03] MED LIST changes: +ALBUMIN (HUMAN) 25% 200 ML IV ONE; -ALBUMIN (HUMAN) 25% 200 ML IV SCH
[2021-10-03 13:57] LABS: APPEARANCE BODY FLUID CLOUDY (CLEAR); BODY FLUID RBC 9520 /cu. mm.; BODY FLUID WBC 70 /cu. mm.; COLOR,BODY FLUID ORANGE (LT YELLOW); SPECIMENTYPE,BODY FLUID ASCITES; TOTAL VOLUME,BODY FLUID 5000 mL
[2021-10-03 14:11] LABS: BF LYMPHOCYTE 57 %; BF MESOTHELIAL 37 %
== END | disposition home or self-care (01) ==
LOC: RAH 07:33
PROVIDERS: ATTEND Family Medicine
DX: R18.8 Other ascites (principal); K74.60 Unspecified cirrhosis of liver; J44.9 Chronic obstructive pulmonary disease, unspecified; Z79.01 Long term (current) use of anticoagulants; Z79.899 Other long term (current) drug therapy; Z90.49 Acquired absence of other specified parts of digestive tract; Z98.890 Other specified postprocedural states
CPT/HCPCS: 49083; 87071; 87205; 89051; C1729; J3490; P9046; 96365

== ENCOUNTER → 2021-10-10 | Outpatient (CLI) | payer OTHER ==
[~2021-10-10] MED LIST changes: -ALBUMIN (HUMAN) 25% 200 ML IV ONE; +ALBUMIN (HUMAN) 25% 200 ML IV SCH
[2021-10-10 08:48] LABS: INR 1.22 (0.85-1.15); PROTHROMBIN TIME 13.1 SEC (9.6-11.6)
[2021-10-10 08:49] LABS: PARTIAL THROMBOPLASTIN TIME 33.1 SEC (26.3-35.5)
[2021-10-10 13:28] LABS: APPEARANCE BODY FLUID SLIGHTLY CLOUDY (CLEAR); COLOR,BODY FLUID YELLOW (LT YELLOW); SPECIMENTYPE,BODY FLUID ASCITES; TOTAL VOLUME,BODY FLUID 5000 mL
[2021-10-10 13:29] LABS: BODY FLUID RBC 5832 /cu. mm.
[2021-10-10 13:30] LABS: BODY FLUID WBC 126 /cu. mm.
[2021-10-10 17:40] LABS: BF LYMPHOCYTE 57 %; BF MESOTHELIAL 2 %; BF MONOCYTE 20 %
== END | disposition home or self-care (01) ==
LOC: RAH 07:32
PROVIDERS: ATTEND Family Medicine
DX: R18.8 Other ascites (principal); K74.60 Unspecified cirrhosis of liver; J44.9 Chronic obstructive pulmonary disease, unspecified; Z79.899 Other long term (current) drug therapy; Z98.890 Other specified postprocedural states; Z79.01 Long term (current) use of anticoagulants
CPT/HCPCS: 36415; 49083; 85610; 85730; 87071; 87205; 89051; C1729; J3490; P9046; 96365

== ENCOUNTER → 2021-10-17 | Outpatient (CLI) | payer OTHER ==
[2021-10-17 13:38] LABS: APPEARANCE BODY FLUID TURBID (CLEAR); COLOR,BODY FLUID DARK YELLOW (LT YELLOW); SPECIMENTYPE,BODY FLUID ASCITES
[2021-10-17 13:39] LABS: TOTAL VOLUME,BODY FLUID 3500 mL
[2021-10-17 14:01] LABS: BODY FLUID WBC 58 /cu. mm.
[2021-10-17 14:02] LABS: BODY FLUID RBC 7200 /cu. mm.
[2021-10-17 14:16] LABS: BF LYMPHOCYTE 60 %; BF MESOTHELIAL 19 %; BF MONOCYTE 21 %
== END | disposition home or self-care (01) ==
LOC: RAH 07:30
PROVIDERS: ATTEND Family Medicine
DX: R18.8 Other ascites (principal); K74.60 Unspecified cirrhosis of liver; J44.9 Chronic obstructive pulmonary disease, unspecified; Z79.899 Other long term (current) drug therapy; Z98.890 Other specified postprocedural states; Z79.01 Long term (current) use of anticoagulants; Z80.3 Family history of malignant neoplasm of breast; Z83.3 Family history of diabetes mellitus
CPT/HCPCS: 49083; 87071; 87205; 89051; C1729; J3490; P9046; 96365

== ENCOUNTER 2021-10-24 07:38 | Outpatient (CLI) | payer OTHER ==
[~2021-10-24 07:38] MED LIST changes: -ALBUMIN (HUMAN) 25% 200 ML IV SCH; -LIDOCAINE HCL 1% MDV 50ML VIAL ONE
[2021-10-24] MEDS ORDERED: ALBUMIN (HUMAN) 25% 200 ML IV SCH (08:00)
[2021-10-24 14:11] LABS: APPEARANCE BODY FLUID CLOUDY (CLEAR); COLOR,BODY FLUID ORANGE (LT YELLOW); SPECIMENTYPE,BODY FLUID ASCITES; TOTAL VOLUME,BODY FLUID 5000 mL
[2021-10-24 14:21] LABS: BODY FLUID RBC 7525 /cu. mm.; BODY FLUID WBC 34 /cu. mm.
[2021-10-24 14:35] LABS: BF LYMPHOCYTE 62 %; BF MESOTHELIAL 22 %; BF MONOCYTE 14 %
[2021-10-25] MEDS ORDERED: LIDOCAINE HCL MPF 1% 5ML VIAL ONE (13:23)
== END 2021-10-24 09:22 | disposition home or self-care (01) ==
LOC: RAH 07:38 → DAH 07:38 → RAH 09:22
PROVIDERS: ATTEND Family Medicine
DX: R18.8 Other ascites (principal); J44.9 Chronic obstructive pulmonary disease, unspecified; Z79.01 Long term (current) use of anticoagulants; Z83.3 Family history of diabetes mellitus; Z80.3 Family history of malignant neoplasm of breast; Z86.010 Personal history of colon polyps; Z98.890 Other specified postprocedural states
CPT/HCPCS: 49083; 89051; 87071; 87205; P9046; C1729; 96365; J3490

== ENCOUNTER → 2021-11-14 | Outpatient (CLI) | payer OTHER ==
[~2021-11-14] MED LIST changes: +ALBUMIN (HUMAN) 25% 200 ML IV SCH
[2021-11-14 08:39] LABS: INR 1.23 (0.85-1.15); PROTHROMBIN TIME 13.3 SEC (9.6-11.6)
[2021-11-14 15:03] LABS: APPEARANCE BODY FLUID CLOUDY (CLEAR); SPECIMENTYPE,BODY FLUID ASCITES
[2021-11-14 15:04] LABS: COLOR,BODY FLUID ORANGE (LT YELLOW); TOTAL VOLUME,BODY FLUID 5000 mL
[2021-11-14 15:05] LABS: BODY FLUID WBC 38 /cu. mm.
[2021-11-14 15:10] LABS: BODY FLUID RBC 27675 /cu. mm.
[2021-11-14 15:15] LABS: BF LYMPHOCYTE 60 %; BF MESOTHELIAL 4 %; BF MONOCYTE 8 %
== END | disposition home or self-care (01) ==
LOC: RAH 07:37
PROVIDERS: ATTEND Family Medicine
DX: R18.8 Other ascites (principal); K74.60 Unspecified cirrhosis of liver; J44.9 Chronic obstructive pulmonary disease, unspecified; Z80.3 Family history of malignant neoplasm of breast; Z83.3 Family history of diabetes mellitus; Z79.899 Other long term (current) drug therapy; Z98.890 Other specified postprocedural states; Z79.01 Long term (current) use of anticoagulants
CPT/HCPCS: 49083; 89051; 85610; 85730; 87071; 87205; 36415; P9046; C1729; 96365

== ENCOUNTER → 2021-11-21 | Outpatient (CLI) | payer OTHER ==
[2021-11-21 15:28] LABS: APPEARANCE BODY FLUID BLOODY (CLEAR); COLOR,BODY FLUID RED (LT YELLOW); SPECIMENTYPE,BODY FLUID ASCITES; TOTAL VOLUME,BODY FLUID 5000 mL
[2021-11-21 15:29] LABS: BODY FLUID WBC 60 /cu. mm.
[2021-11-21 15:30] LABS: BODY FLUID RBC 27375 /cu. mm.
[2021-11-21 15:47] LABS: BF LYMPHOCYTE 75 %; BF MESOTHELIAL 3 %; BF MONOCYTE 1 %
== END | disposition home or self-care (01) ==
LOC: RAH 07:38
PROVIDERS: ATTEND Family Medicine
DX: R18.8 Other ascites (principal); K74.60 Unspecified cirrhosis of liver; J44.9 Chronic obstructive pulmonary disease, unspecified; Z80.3 Family history of malignant neoplasm of breast; Z83.3 Family history of diabetes mellitus; Z79.899 Other long term (current) drug therapy; Z98.890 Other specified postprocedural states; Z79.01 Long term (current) use of anticoagulants
CPT/HCPCS: 49083; 89051; 87071; 87205; P9046; C1729; 96365

== ENCOUNTER → 2021-11-28 | Outpatient (CLI) | payer OTHER ==
[2021-11-28 14:00] LABS: APPEARANCE BODY FLUID CLEAR (CLEAR); COLOR,BODY FLUID YELLOW (LT YELLOW); SPECIMENTYPE,BODY FLUID ASCITES; TOTAL VOLUME,BODY FLUID 9900 mL
[2021-11-28 14:01] LABS: BODY FLUID RBC 1400 /cu. mm.; BODY FLUID WBC 48 /cu. mm.
[2021-11-28 14:16] LABS: BF LYMPHOCYTE 32 %; BF MESOTHELIAL 42 %; BF MONOCYTE 19 %
== END | disposition home or self-care (01) ==
LOC: RAH 10:00
PROVIDERS: ATTEND Family Medicine
DX: R18.8 Other ascites (principal); K74.69 Other cirrhosis of liver; J44.9 Chronic obstructive pulmonary disease, unspecified; Z80.3 Family history of malignant neoplasm of breast; Z83.3 Family history of diabetes mellitus; Z79.899 Other long term (current) drug therapy; Z98.890 Other specified postprocedural states; Z79.01 Long term (current) use of anticoagulants
CPT/HCPCS: 49083; 89051; 87071; 87205; P9046; C1729

== ENCOUNTER → 2021-12-05 | Outpatient (CLI) | payer OTHER ==
[~2021-12-05] MED LIST changes: +ALBUMIN (HUMAN) 25% 100 ML IV SCH; -ALBUMIN (HUMAN) 25% 200 ML IV SCH; +LIDOCAINE HCL 1% 20 ML VIAL ONE
[2021-12-05 11:31] LABS: APPEARANCE BODY FLUID TURBID (CLEAR); COLOR,BODY FLUID RED (LT YELLOW); SPECIMENTYPE,BODY FLUID ASCITES; TOTAL VOLUME,BODY FLUID 5000 mL
[2021-12-05 11:48] LABS: BODY FLUID RBC 11875 /cu. mm.; BODY FLUID WBC 84 /cu. mm.
[2021-12-05 13:21] LABS: BF LYMPHOCYTE 50 %; BF MESOTHELIAL 28 %; BF MONOCYTE 17 %
== END | disposition home or self-care (01) ==
LOC: RAH 07:28
PROVIDERS: ATTEND Family Medicine
DX: R18.8 Other ascites (principal); K74.60 Unspecified cirrhosis of liver; K44.9 Diaphragmatic hernia without obstruction or gangrene; Z80.3 Family history of malignant neoplasm of breast; Z83.3 Family history of diabetes mellitus; Z79.899 Other long term (current) drug therapy; Z98.890 Other specified postprocedural states; Z79.01 Long term (current) use of anticoagulants
CPT/HCPCS: 49083; 89051; 87071; 87205; P9046; C1729; 96365

== ENCOUNTER → 2021-12-12 | Outpatient (CLI) | payer OTHER ==
[~2021-12-12] MED LIST changes: -ALBUMIN (HUMAN) 25% 100 ML IV SCH; +ALBUMIN (HUMAN) 25% 200 ML IV SCH
[2021-12-12 12:08] LABS: APPEARANCE BODY FLUID CLOUDY (CLEAR); COLOR,BODY FLUID RED (LT YELLOW); SPECIMENTYPE,BODY FLUID ASCITES
[2021-12-12 12:09] LABS: BODY FLUID RBC 15475 /cu. mm.; BODY FLUID WBC 65 /cu. mm.; TOTAL VOLUME,BODY FLUID 5000 mL
[2021-12-12 12:51] LABS: BF LYMPHOCYTE 43 %; BF MESOTHELIAL 31 %; BF MONOCYTE 18 %
== END | disposition home or self-care (01) ==
LOC: RAH 07:30
PROVIDERS: ATTEND Family Medicine
DX: R18.8 Other ascites (principal); K74.69 Other cirrhosis of liver; J44.9 Chronic obstructive pulmonary disease, unspecified; Z80.3 Family history of malignant neoplasm of breast; Z83.3 Family history of diabetes mellitus; Z79.899 Other long term (current) drug therapy; Z98.890 Other specified postprocedural states; Z79.01 Long term (current) use of anticoagulants
CPT/HCPCS: 49083; 89051; 87071; 87205; P9046; C1729

== ENCOUNTER → 2021-12-31 | Outpatient (CLI) | payer OTHER ==
[~2021-12-31] MED LIST changes: +AMOX-426 PO; +FERR-72 PO; -LIDOCAINE HCL 1% 20 ML VIAL ONE; +PANT40TA55 PO; +PROP10TA10 PO
[2021-12-31 08:49] LABS: BASOPHILS % (AUTO) 0.6 % (0.0-5.0); EOSINOPHILS % (AUTO) 3.4 % (0.0-8.0); HEMATOCRIT 31.2 % (42-54); LYMPHOCYTES % (AUTO) 10.7 % (21.0-51.0); MEAN CORPUSCULAR HEMOGLOBIN 30.3 pg (27.0-33.0); MEAN CORPUSCULAR VOLUME 91.8 fL (79-99); MONOCYTES % (AUTO) 14.4 % (3.0-13.0); NEUTROPHILS % (AUTO) 70.3 % (40.0-77.0); PLATELET COUNT (AUTO) 57 K/uL (130-400); RED CELL DISTRIBUTION WIDTH 17.4 % (11.0-15.5); WHITE BLOOD COUNT (AUTO) 3.3 K/uL (4.8-10.8)
[2021-12-31 08:59] LABS: INR 1.27 (0.85-1.15); PROTHROMBIN TIME 13.7 SEC (9.6-11.6)
[2021-12-31 09:00] LABS: PARTIAL THROMBOPLASTIN TIME 29.1 SEC (26.3-35.5)
[2021-12-31 09:08] LABS: ALBUMIN 2.8 g/dL (3.5-5.0); CREATININE 0.6 mg/dL (0.5-1.5); TOTAL PROTEIN, SERUM 6.8 g/dL (6.0-8.3)
[2021-12-31 09:09] LABS: POTASSIUM 5.1 mmol/L (3.5-5.1)
[2021-12-31 13:58] LABS: SPECIMENTYPE,BODY FLUID ASCITES
[2021-12-31 13:59] LABS: APPEARANCE BODY FLUID CLOUDY (CLEAR); COLOR,BODY FLUID ORANGE (LT YELLOW); TOTAL VOLUME,BODY FLUID 6000 mL
[2021-12-31 14:00] LABS: BODY FLUID RBC 13100 /cu. mm.; BODY FLUID WBC 45 /cu. mm.
[2021-12-31 14:26] LABS: BF LYMPHOCYTE 29 %; BF MESOTHELIAL 1 %; BF MONOCYTE 4 %
== END | disposition home or self-care (01) ==
LOC: RAH 07:29
PROVIDERS: ATTEND Family Medicine
DX: R18.8 Other ascites (principal); K74.69 Other cirrhosis of liver; Z79.01 Long term (current) use of anticoagulants; Z79.899 Other long term (current) drug therapy; J44.9 Chronic obstructive pulmonary disease, unspecified; Z80.3 Family history of malignant neoplasm of breast; Z83.3 Family history of diabetes mellitus; Z98.890 Other specified postprocedural states
CPT/HCPCS: 49083; 80053; 85025; 89051; 85610; 85730; 87071; 87205; 36415; P9046; C1729; 96365

== ENCOUNTER → 2022-01-07 | Outpatient (CLI) | payer OTHER ==
[2022-01-07 15:47] LABS: APPEARANCE BODY FLUID CLOUDY (CLEAR); COLOR,BODY FLUID PINK (LT YELLOW); SPECIMENTYPE,BODY FLUID ASCITES
[2022-01-07 15:48] LABS: BODY FLUID RBC 7700 /cu. mm.; BODY FLUID WBC 34 /cu. mm.; TOTAL VOLUME,BODY FLUID 6000 mL
[2022-01-07 15:52] LABS: BF LYMPHOCYTE 58 %; BF MONOCYTE 38 %
== END | disposition home or self-care (01) ==
LOC: RAH 07:33
PROVIDERS: ATTEND Family Medicine
DX: R18.8 Other ascites (principal); K74.69 Other cirrhosis of liver; J44.9 Chronic obstructive pulmonary disease, unspecified; Z79.01 Long term (current) use of anticoagulants; Z79.899 Other long term (current) drug therapy; Z80.3 Family history of malignant neoplasm of breast; Z83.3 Family history of diabetes mellitus; Z98.890 Other specified postprocedural states
CPT/HCPCS: 49083; 89051; 87071; 87205; P9046; C1729; 96365

== ENCOUNTER → 2022-01-14 | Outpatient (CLI) | payer OTHER ==
[2022-01-14 12:23] LABS: APPEARANCE BODY FLUID CLOUDY (CLEAR); COLOR,BODY FLUID RED (LT YELLOW); SPECIMENTYPE,BODY FLUID ASCITES; TOTAL VOLUME,BODY FLUID 6000 mL
[2022-01-14 12:24] LABS: BODY FLUID RBC 8525 /cu. mm.; BODY FLUID WBC 58 /cu. mm.
[2022-01-14 13:06] LABS: BF BASOPHIL 1 %; BF LYMPHOCYTE 56 %; BF MESOTHELIAL 16 %; BF MONOCYTE 15 %
== END | disposition home or self-care (01) ==
LOC: RAH 07:31
PROVIDERS: ATTEND Family Medicine
DX: R18.8 Other ascites (principal); K74.69 Other cirrhosis of liver; J44.9 Chronic obstructive pulmonary disease, unspecified; Z79.01 Long term (current) use of anticoagulants; Z79.899 Other long term (current) drug therapy; Z80.3 Family history of malignant neoplasm of breast; Z83.3 Family history of diabetes mellitus; Z98.890 Other specified postprocedural states
CPT/HCPCS: 49083; 89051; 87071; 87205; P9046; C1729; 96365

== ENCOUNTER → 2022-01-21 | Outpatient (CLI) | payer OTHER ==
[~2022-01-21] MED LIST changes: +ALBUMIN (HUMAN) 25% 200 ML IV ONE; -ALBUMIN (HUMAN) 25% 200 ML IV SCH; +LIDOCAINE HCL-MPF 1% 2ML VIAL ONE
[2022-01-21 14:21] LABS: APPEARANCE BODY FLUID CLOUDY (CLEAR); COLOR,BODY FLUID ORANGE (LT YELLOW); SPECIMENTYPE,BODY FLUID ASCITES; TOTAL VOLUME,BODY FLUID 5000 mL
[2022-01-21 14:22] LABS: BODY FLUID WBC 144 /cu. mm.
[2022-01-21 14:23] LABS: BODY FLUID RBC 17136 /cu. mm.
[2022-01-21 15:12] LABS: BF LYMPHOCYTE 81 %; BF MESOTHELIAL 5 %
== END | disposition home or self-care (01) ==
LOC: RAH 07:40
PROVIDERS: ATTEND Family Medicine
DX: R18.8 Other ascites (principal); K74.69 Other cirrhosis of liver; J44.9 Chronic obstructive pulmonary disease, unspecified; Z80.3 Family history of malignant neoplasm of breast; Z83.3 Family history of diabetes mellitus; Z98.890 Other specified postprocedural states; Z79.01 Long term (current) use of anticoagulants; Z79.899 Other long term (current) drug therapy
CPT/HCPCS: 49083; 89051; 87071; 87205; P9046; J3490; C1729; 96365

== ENCOUNTER → 2022-01-28 | Outpatient (CLI) | payer OTHER ==
[~2022-01-28] MED LIST changes: -ALBUMIN (HUMAN) 25% 200 ML IV ONE; +ALBUMIN (HUMAN) 25% 200 ML IV SCH; +LIDOCAINE HCL 1% 20 ML VIAL ONE; -LIDOCAINE HCL-MPF 1% 2ML VIAL ONE
[2022-01-28 14:27] LABS: APPEARANCE BODY FLUID CLOUDY (CLEAR); COLOR,BODY FLUID PINK (LT YELLOW); SPECIMENTYPE,BODY FLUID ASCITES
[2022-01-28 14:28] LABS: BODY FLUID WBC 44 /cu. mm.; TOTAL VOLUME,BODY FLUID 5000 mL
[2022-01-28 14:29] LABS: BODY FLUID RBC 16500 /cu. mm.
[2022-01-28 14:31] LABS: BF LYMPHOCYTE 63 %; BF MONOCYTE 34 %
== END | disposition home or self-care (01) ==
LOC: RAH 07:34
PROVIDERS: ATTEND Family Medicine
DX: R18.8 Other ascites (principal); Z79.01 Long term (current) use of anticoagulants; Z79.899 Other long term (current) drug therapy
CPT/HCPCS: 49083; 89051; 87071; 87205; P9046; C1729; 96365

== ENCOUNTER → 2022-02-04 | Outpatient (CLI) | payer OTHER ==
[~2022-02-04] MED LIST changes: +ALBUMIN (HUMAN) 25% 200 ML IV ONE; -ALBUMIN (HUMAN) 25% 200 ML IV SCH
[2022-02-04 08:29] LABS: INR 1.25 (0.85-1.15); PROTHROMBIN TIME 13.5 SEC (9.6-11.6)
[2022-02-04 08:30] LABS: PARTIAL THROMBOPLASTIN TIME 31.9 SEC (26.3-35.5)
[2022-02-04 14:22] LABS: APPEARANCE BODY FLUID CLOUDY (CLEAR); COLOR,BODY FLUID ORANGE (LT YELLOW); SPECIMENTYPE,BODY FLUID ASCITES; TOTAL VOLUME,BODY FLUID 5000 mL
[2022-02-04 14:23] LABS: BODY FLUID RBC 9576 /cu. mm.; BODY FLUID WBC 72 /cu. mm.
[2022-02-04 16:22] LABS: BF LYMPHOCYTE 38 %; BF MESOTHELIAL 8 %; BF MONOCYTE 10 %
== END | disposition home or self-care (01) ==
LOC: RAH 07:36
PROVIDERS: ATTEND Family Medicine
DX: R18.8 Other ascites (principal); K74.69 Other cirrhosis of liver; J44.9 Chronic obstructive pulmonary disease, unspecified; Z79.01 Long term (current) use of anticoagulants; Z79.899 Other long term (current) drug therapy; Z80.3 Family history of malignant neoplasm of breast; Z83.3 Family history of diabetes mellitus; Z98.890 Other specified postprocedural states
CPT/HCPCS: 49083; 89051; 85610; 85730; 87071; 87205; 36415; C1729; 96365

== ENCOUNTER → 2022-02-11 | Outpatient (CLI) | payer OTHER ==
[~2022-02-11] MED LIST changes: +ALBUMIN (HUMAN) 25% 100 ML IV SCH; -ALBUMIN (HUMAN) 25% 200 ML IV ONE; +ALBUMIN (HUMAN) 25% 200 ML IV SCH
[2022-02-11 12:05] LABS: SPECIMENTYPE,BODY FLUID ASCITES
[2022-02-11 12:08] LABS: APPEARANCE BODY FLUID CLOUDY (CLEAR); BODY FLUID WBC 81 /cu. mm.; COLOR,BODY FLUID RED (LT YELLOW); TOTAL VOLUME,BODY FLUID 5000 mL
[2022-02-11 12:10] LABS: BODY FLUID RBC 17600 /cu. mm.
[2022-02-11 12:36] LABS: BF BASOPHIL 2 %; BF LYMPHOCYTE 52 %; BF MESOTHELIAL 16 %; BF MONOCYTE 17 %
== END | disposition home or self-care (01) ==
LOC: RAH 07:34
PROVIDERS: ATTEND Family Medicine
DX: R18.8 Other ascites (principal); K74.69 Other cirrhosis of liver; K76.6 Portal hypertension; D63.8 Anemia in other chronic diseases classified elsewhere; D69.6 Thrombocytopenia, unspecified; E26.9 Hyperaldosteronism, unspecified; D84.81 Immunodeficiency due to conditions classified elsewhere; J44.9 Chronic obstructive pulmonary disease, unspecified; Z79.899 Other long term (current) drug therapy; Z98.890 Other specified postprocedural states; Z86.010 Personal history of colon polyps; Z80.3 Family history of malignant neoplasm of breast; Z83.3 Family history of diabetes mellitus; Z87.891 Personal history of nicotine dependence; Z72.89 Other problems related to lifestyle
CPT/HCPCS: 49083; 89051; 87071; 87205; P9046 ×2; C1729; 96365

== ENCOUNTER → 2022-02-18 | Outpatient (CLI) | payer OTHER ==
[~2022-02-18] MED LIST changes: -ALBUMIN (HUMAN) 25% 100 ML IV SCH
[2022-02-18 14:48] LABS: SPECIMENTYPE,BODY FLUID ASCITES
[2022-02-18 14:49] LABS: APPEARANCE BODY FLUID TURBID (CLEAR); COLOR,BODY FLUID RED (LT YELLOW); TOTAL VOLUME,BODY FLUID 6000 mL
[2022-02-18 14:51] LABS: BODY FLUID WBC 39 /cu. mm.
[2022-02-18 14:52] LABS: BODY FLUID RBC 8125 /cu. mm.
[2022-02-18 14:55] LABS: BF LYMPHOCYTE 22 %; BF MONOCYTE 55 %
== END | disposition home or self-care (01) ==
LOC: RAH 07:26
PROVIDERS: ATTEND Family Medicine
DX: R18.8 Other ascites (principal); K74.69 Other cirrhosis of liver; K76.6 Portal hypertension; D63.8 Anemia in other chronic diseases classified elsewhere; D69.6 Thrombocytopenia, unspecified; E26.9 Hyperaldosteronism, unspecified; D84.81 Immunodeficiency due to conditions classified elsewhere; J44.9 Chronic obstructive pulmonary disease, unspecified; Z98.890 Other specified postprocedural states; Z79.01 Long term (current) use of anticoagulants; Z79.899 Other long term (current) drug therapy; Z86.010 Personal history of colon polyps; Z80.3 Family history of malignant neoplasm of breast; Z83.3 Family history of diabetes mellitus; Z87.891 Personal history of nicotine dependence; Z72.89 Other problems related to lifestyle
CPT/HCPCS: 49083; 89051; 87071; 87205; P9046; C1729

== ENCOUNTER → 2022-02-25 | Outpatient (CLI) | payer OTHER ==
[2022-02-25 14:22] LABS: APPEARANCE BODY FLUID CLOUDY (CLEAR); BODY FLUID WBC 42 /cu. mm.; COLOR,BODY FLUID PINK (LT YELLOW); SPECIMENTYPE,BODY FLUID ASCITES; TOTAL VOLUME,BODY FLUID 5000 mL
[2022-02-25 14:23] LABS: BODY FLUID RBC 13725 /cu. mm.
[2022-02-25 14:37] LABS: BF LYMPHOCYTE 49 %; BF MONOCYTE 44 %
== END | disposition home or self-care (01) ==
LOC: RAH 07:28
PROVIDERS: ATTEND Family Medicine
DX: R18.8 Other ascites (principal); K74.69 Other cirrhosis of liver; J44.9 Chronic obstructive pulmonary disease, unspecified; D69.6 Thrombocytopenia, unspecified; K76.6 Portal hypertension; R16.1 Splenomegaly, not elsewhere classified; E26.9 Hyperaldosteronism, unspecified; D84.81 Immunodeficiency due to conditions classified elsewhere; D63.8 Anemia in other chronic diseases classified elsewhere; Z79.01 Long term (current) use of anticoagulants; Z79.899 Other long term (current) drug therapy; Z86.010 Personal history of colon polyps; Z98.890 Other specified postprocedural states; Z80.3 Family history of malignant neoplasm of breast; Z83.3 Family history of diabetes mellitus
CPT/HCPCS: 49083; 89051; 87071; 87205; P9046; C1729; 96365

== ENCOUNTER 2022-03-15 08:12 | Emergency (ER) | payer OTHER ==
[~2022-03-15] VITALS: Ht 157.5 cm; Wt 54.4 kg
[~2022-03-15 08:12] MED LIST changes: -ALBUMIN (HUMAN) 25% 200 ML IV SCH; -LIDOCAINE HCL 1% 20 ML VIAL ONE
[2022-03-15 09:06] LABS: BASOPHILS % (AUTO) 0.2 % (0.0-5.0); EOSINOPHILS % (AUTO) 0.1 % (0.0-8.0); HEMATOCRIT 28.8 % (42-54); LYMPHOCYTES % (AUTO) 1.8 % (21.0-51.0); MEAN CORPUSCULAR HEMOGLOBIN 30.4 pg (27.0-33.0); MEAN CORPUSCULAR HGB CONC 33.7 g/dL (32.0-36.0); MEAN CORPUSCULAR VOLUME 90.3 fL (79-99); MONOCYTES % (AUTO) 8.2 % (3.0-13.0); NEUTROPHILS % (AUTO) 88.3 % (40.0-77.0); PLATELET COUNT (AUTO) 58 K/uL (130-400); RED BLOOD CELL COUNT(AUTO) 3.19 MIL/uL (4.50-6.20); RED CELL DISTRIBUTION WIDTH 15.8 % (11.0-15.5); WHITE BLOOD COUNT (AUTO) 20.5 K/uL (4.8-10.8)
[2022-03-15 09:16] LABS: INR 1.37 (0.85-1.15); PROTHROMBIN TIME 14.7 SEC (9.6-11.6)
[2022-03-15 09:18] LABS: PARTIAL THROMBOPLASTIN TIME 34.4 SEC (26.3-35.5)
[2022-03-15 10:10] LABS: CREATININE 1.1 mg/dL (0.5-1.5); POTASSIUM 5.9 mmol/L (3.5-5.1)
[2022-03-15 10:14] LABS: TOTAL PROTEIN, SERUM 6.2 g/dL (6.0-8.3)
[2022-03-15 10:30] LABS: PLATELET MORPHOLOGY COMMENT DECREASED
[2022-03-15 11:57] VITALS: BP 92/65
[2022-03-15] MEDS ORDERED: MORPHINE 2 MG SYG IVP ONE (15:00)
== END 2022-03-15 15:20 | disposition home or self-care (01) ==
LOC: EDH 08:12
DX: K74.60 Unspecified cirrhosis of liver (principal); E43 Unspecified severe protein-calorie malnutrition; Z79.899 Other long term (current) drug therapy; Z68.21 Body mass index [BMI] 21.0-21.9, adult
CPT/HCPCS: 36415; 74176; 80053; 85025; 85610; 85730; 96374